=== PATIENT | male | born 1955 | race Caucasian/White ===

== ENCOUNTER 2024-12-10 00:22 | Day surgery (SDC) | payer MEDICARE, SELFPAY ==
[2024-11-28 14:59] VITALS: BMI 36.8
--- OUTSIDE RECORDS SUMMARY | 2024-12-10 00:46 | XMS_ITS | Data Portability ---
Author Organization [place] [facility], Main Office Address [address] [place] [address] Assessment Encounter Date Assessment Date Assessment LastModified by Organization Details LastModified Time 01/02/2023 01/02/2023 Target for LDL blood pressure and A1c have been discussed needs to lose a little bit of weight Continue current therapy follow-up in 6 months [email or web address] Not available 01/02/2023 23:10:36 03/21/2023 03/21/2023 Assessment: Rhinitis Mild OSAHS, AHI = 11 PLMD Vit E deficiency Plan: The following were reviewed and explained to the patient: [facility] titration sleep study 01/03/05 [facility] diagnostic sleep study 12/07/12 AHI = 6 [facility] diagnostic sleep study 09/12/18 AHI = 11, PLMI = 43 [facility] titration sleep study 09/20/18 Alpha tocopherol 04/14/21 7.2 mg/L Alpha tocopherol 01/10/22 11.4 mg/L Alpha tocopherol 03/06/23 12.7 mg/L Non-pharmacologi c therapy options for periodic limb movement disorder include avoidance of aggravating drugs and substances, mental alerting activities, short daily hemodialysis for patients in renal failure, exercise, leg massage, stretching calf muscles, use of a weighted blanket and applied heat. Patient will cut down on caffeine intake. BUN, Vitamin B12, RBC folate, Iron, TIBC, Ferritin, ESR, Magnesium, Hgb and Hct levels are within normal limits. Patient will continue Vitamin E 200 IU but decrease from every other day to 3 x a week to keep the alpha tocopherol > 9.0 mg/L. PAP compliance downloaded and interpreted x 20 minutes. Data reviewed and explained to the patient. Average apnea/hypopnea index (AHI) is 1.3. Patient used PAP > 4 hours 41% of the time. PAP is set at 9 cmH2O. PAP will remain at 9 cmH2O. Oxygen supplementation: none Patient is benefiting from PAP therapy. Encouraged patient to maintain PAP use more than 70% of the time. Statement of PAP use and benefits will be sent to the home care store. The patient will bring the PAP unit, the hose, the cord, the mask and the card/chip to each follow-up visit for further evaluation and adjustments. Educated the patient on problems and solutions associated with positive airway pressure (PAP) use. Difficulty tolerating pressure, mask leaks, intolerance of interface, nasal congestion, claustrophobic response, dry mouth, and unintentional mask removal during sleep were covered. Patient experiences nasal congestion. Patient will use nasal saline spray before starting PAP, use heated PAP humidifier, clean/air dry humidifier reservoir daily, use nasal steroid spray, use ipratropium bromide nasal spray if rhinitis/rhinorr hea is present or obtain an oronasal/oral interface. Patient will setup an appointment with [facility] for CPAP supplies. A major predictor of success with use of PAP is follow-up with both the respiratory supplier and the treating physician. To help assess adherence, a downloadable card/chip is ordered with the PAP equipment. The card/chip will be downloaded by the respiratory supplier and sent to the treating physician. The download results can show the treating physician information about adherence to treatment, residual AHI while on treatment and presence of large mask leakage. This information is especially helpful if the patient has residual sleepiness despite treatment. General information on sleep disorder breathing, evaluation of sleep disordered breathing, treatment with PAP therapy, and living with PAP therapy were covered. We discussed with the patient the impact of weight on: Sleep disordered breathing Hypertension Hyperlipidemia DM BABAR Fatty liver Thoracic compression fractures Osteoarthritis Plantar fasciitis We discussed with the patient the benefit of PAP therapy on: Sleep disordered breathing Rhinosinusitis Hypertension DM BABAR Educated the patient on sleep hygiene measures. Relaxing rituals to rest easy, understanding foods with positive and negative impact on sleep, creating a peaceful sleep environment, timing of exercise, using herbal sleep aids, and practicing sleep-friendly meditation were covered. To determine how much sleep is needed, the patient will assess where (s)he falls on the spectrum, examine what lifestyle factors such as work schedules and stress are affecting the quality and quantity of sleep. In general, adults need 7-9 hours of sleep. Educated the patient regarding foods that promote sleep. These include but are not limited to cherries, bananas, toast, oatmeal, and warm milk. Educated the patient regarding foods and drinks to avoid before bedtime. These include but are not limited to aged cheese, chocolate, spicy foods, tomato-based sauces, soy, ginseng tea and processed meat. Advocated influenza vaccination annually and pneumonia vaccination KRISTAN. Advocated weight loss through diet and exercise. Patient's ideal body weight according to height and gender is up to 155 lbs. Encouraged patient to adjust caloric intake to maintain/achieve ideal body weight, emphasizing on fruits, vegetables, whole grains, and fat-free or low-fat products. These include lean meats, poultry, fish, beans, eggs, and nuts and foods that are low in saturated fats, trans-fats, cholesterol, salt (sodium), and glycemic index. Stressed the importance of regular exercise up to the patient's capacity limits. In this case, we recommend 20 min daily walking, 2 days a week of resistance training. Patient to monitor BP daily and bring records to PCP for further management. Follow-up: 9 months, December 2023 Not available 03/21/2023 10:15:06 05/15/2023 05/15/2023 Continue current therapy would like to consider him for Ozempic for diabetic control and weight reduction but he is reluctant for shot he is going to try caloric restriction walking a little bit more continue current therapy tries to be compliant with sleep apnea device follow-up with me in 4 months [email or web address] Not available 05/15/2023 13:57:27 09/13/2023 09/13/2023 Blood work will be obtained continue current therapy weight reduction 4 month follow-up. [email or web address] Not available 10/03/2023 22:52:05 01/15/2024 01/15/2024 Assessment: Rhinitis Mild OSAHS, AHI = 11 PLMD Vit E deficiency Plan: The following were reviewed and explained to the patient: [facility] titration sleep study 01/03/05 [facility] diagnostic sleep study 12/07/12 AHI = 6 [facility] diagnostic sleep study 09/12/18 AHI = 11, PLMI = 43 [facility] titration sleep study 09/20/18 Alpha tocopherol 04/14/21 7.2 mg/L Alpha tocopherol 01/10/22 11.4 mg/L Alpha tocopherol 03/06/23 12.7 mg/L Alpha tocopherol 01/08/24 9.9 mg/L Non-pharmacologi c therapy options for periodic limb movement disorder include avoidance of aggravating drugs and substances, mental alerting activities, short daily hemodialysis for patients in renal failure, exercise, leg massage, stretching calf muscles, use of a weighted blanket and applied heat. Patient will cut down on caffeine intake. BUN, Vitamin B12, RBC folate, Iron, TIBC, Ferritin, ESR, Magnesium, Hgb and Hct levels are within normal limits. Patient will continue Vitamin E 200 IU every other day to keep the alpha tocopherol > 9.0 mg/L. PAP compliance downloaded and interpreted x 20 minutes. Data reviewed and explained to the patient. Average apnea/hypopnea index (AHI) is 1.1. Patient used PAP > 4 hours 14% of the time. PAP is set at 9 cmH2O. PAP will remain at 9 cmH2O. Oxygen supplementation: none Keep EPR + 1. Keep ramp at 4 cmH2O. Keep ramp duration for 20 minutes. Keep humidifier at level 3. Keep tube temperature at 72 F. Patient is benefiting from PAP therapy. Encouraged patient to maintain PAP use more than 70% of the time. Statement of PAP use and benefits will be sent to the home care store. The patient will bring the PAP unit, the hose, the cord, the mask and the card/chip to each follow-up visit for further evaluation and adjustments. Educated the patient on problems and solutions associated with positive airway pressure (PAP) use. Difficulty tolerating pressure, mask leaks, intolerance of interface, nasal congestion, claustrophobic response, dry mouth, and unintentional mask removal during sleep were covered. Patient experiences nasal congestion. Patient will use nasal saline spray before starting PAP, use heated PAP humidifier, clean/air dry humidifier reservoir daily, use nasal steroid spray, use ipratropium bromide nasal spray if rhinitis/rhinorr hea is present or obtain an oronasal/oral interface. Patient will setup an appointment with [facility] for CPAP supplies. A major predictor of success with use of PAP is follow-up with both the respiratory supplier and the treating physician. The download results can show the treating physician information about adherence to treatment, residual AHI while on treatment and presence of large mask leakage. This information is especially helpful if the patient has residual sleepiness despite treatment. General information on sleep disorder breathing, evaluation of sleep disordered breathing, treatment with PAP therapy, and living with PAP therapy were covered. We discussed with the patient the impact of weight on: Sleep disordered breathing Hypertension Hyperlipidemia DM BABAR Fatty liver Thoracic compression fractures Osteoarthritis Plantar fasciitis We discussed with the patient the benefit of PAP therapy on: Sleep disordered breathing Rhinosinusitis Hypertension DM BABAR Educated the patient on sleep hygiene measures. Relaxing rituals to rest easy, understanding foods with positive and negative impact on sleep, creating a peaceful sleep environment, timing of exercise, using herbal sleep aids, and practicing sleep-friendly meditation were covered. To determine how much sleep is needed, the patient will assess where (s)he falls on the spectrum, examine what lifestyle factors such as work schedules and stress are affecting the quality and quantity of sleep. In general, adults need 7-9 hours of sleep. Educated the patient regarding foods that promote sleep. These include but are not limited to cherries, bananas, toast, oatmeal, and warm milk. Educated the patient regarding foods and drinks to avoid before bedtime. These include but are not limited to aged cheese, chocolate, spicy foods, tomato-based sauces, soy, ginseng tea and processed meat. Advocated influenza vaccination annually and pneumonia vaccination KRISTAN. Advocated weight loss through diet and exercise. Patient's ideal body weight according to height and gender is up to 155 lbs. Encouraged patient to adjust caloric intake to maintain/achieve ideal body weight, emphasizing on fruits, vegetables, whole grains, and fat-free or low-fat products. These include lean meats, poultry, fish, beans, eggs, and nuts and foods that are low in saturated fats, trans-fats, cholesterol, salt (sodium), and glycemic index. Stressed the importance of regular exercise up to the patient's capacity limits. In this case, we recommend 20 min daily walking, 2 days a week of resistance training. Patient to monitor BP daily and bring records to PCP for further management. Follow-up: 1 year, December 2024 Not available 01/15/2024 11:47:44 Plan of Treatment Reminders Order Date Submit Date Provider Last Modified By Organization Details Last Modified Time Details Appointments Establish ed Patient 15 2024 09:15A Tin Blanco MD Not available Not available Not available Lab vitamin E, serum 2023 025 [email or web address] [facility] (Lab), [address] [place], [address], 11/29/2024 13:41:26 glycohemo globin, total, blood 2022 023 [facility] (Lab), [address] [place], [address], 09/13/2023 15:06:26 lipid panel, serum [address] (Lab), [address] [place], [address], 09/13/2023 13:11:19 CMP, serum or plasma [address] (Lab), [address] [place], [address], 09/13/2023 13:11:19 CBC w/ auto diff [address] (Lab), [address] [place], [address], 09/13/2023 13:11:19 PSA, total, serum or plasma 2022 023 [facility] (Lab), [address] [place], [address], 05/15/2023 14:17:16 glycohemo globin, total, blood 2022 023 [facility] (Lab), [address] [place], [address], 05/15/2023 15:32:26 CBC w/ auto diff [address] (Lab), [address] [place], [address], 05/15/2023 13:55:31 lipid panel, serum 2022 023 [facility] (Lab), [address] [place], [address], 05/15/2023 14:03:41 CMP, serum or plasma 2022 023 [facility] (Lab), [address] [place], [address], 05/15/2023 14:03:46 vitamin E, serum [address] (Lab), [address] [place], [address], 11/15/2023 09:55:35 glycohemo globin, total, blood 2022 023 [facility] (Lab), [address] [place], [address], 01/02/2023 19:46:49 CMP, serum or plasma 2022 023 [facility] (Lab), [address] [place], [address], 01/02/2023 19:24:55 lipid panel, serum 2022 023 [facility] (Lab), [address] [place], [address], 01/02/2023 19:25:00 Referral None recorded. Procedures None recorded. Surgeries None recorded. Imaging None recorded. Medication Orders vitamin E mixed 200 unit tablet [address]23 [address] [facility] #[id number], [id number] , [place], [address], 01/15/2024 11:46:02 vitamin E 200 unit capsule 2022 023 [id number], [id number], [place], [address], 11/24/2024 14:11:59 Patient TargetsNo targets recorded. Patient InstructionsNo instructions recorded. Reason for Referral None Reported. Results Created Date Observation Date Name Description Value Unit Range Abnormal Flag Note LastModifiedBy Organization Detail LastModifiedTime 01/03/2001/02/2023 COMPR EHENS NIKKO METAB OLIC PANEL sodium 139 mmol/ L 137-14 5 Not Available [facility] (Lab) [address] [place], [address], 01/02/2023 19:24:55 01/03/2001/02/2023 COMPR EHENS NIKKO METAB OLIC PANEL potassium 4.0 mmol/ L 3.5-5. 1 Not Available [facility] (Lab) [address] [place], [address], 01/02/2023 19:24:55 01/03/20 23 01/02/2023 COMPR EHENS NIKKO METAB OLIC PANEL chloride 102 mmol/ L 98-107 Not Available [facility] (Lab) [address] [place], [address], 01/02/2023 19:24:55 01/03/20 23 01/02/2023 COMPR EHENS NIKKO METAB OLIC PANEL carbon dioxide 24 mmol/ L 22-30 Not Available [facility] (Lab) [address] [place], [address], 01/02/2023 19:24:55 01/03/20 23 01/02/2023 COMPR EHENS NIKKO METAB OLIC PANEL anion gap 17.0 mmol/ L 14-22 Not Available [facility] (Lab) [address] [place], [address], 01/02/2023 19:24:55 01/03/20 23 01/02/2023 COMPR EHENS NIKKO METAB OLIC PANEL glucose 119 mg/dL 70-99 high Not Available [facility] (Lab) [address] [place], [address], 01/02/2023 19:24:55 01/03/20 23 01/02/2023 COMPR EHENS NIKKO METAB OLIC PANEL BUN 14 mg/dL 8-19 Not Available [facility] (Lab) [address] [place], [address], 01/02/2023 19:24:55 01/03/20 23 01/02/2023 COMPR EHENS NIKKO METAB OLIC PANEL creatinine 0.50 mg/dL 0.66-1 .25 low Not Available [facility] (Lab) [address] [place], [address], 01/02/2023 19:24:55 01/03/20 23 01/02/2023 COMPR EHENS NIKKO METAB OLIC PANEL GFR >60 Refer ence Range : [place] ge GFR Healt hy Adult : >60 mL/mi n/1.7 3 m2 Chron ic Kidne y Disea se: 15-60 mL/mi n/1.7 3 m2 Kidne y Failu re: <15/m L/min /1.73 m2 www.n iddk. nih.g ov The MDRD study equat ion has not been valid ated in child [place] <18 years of age; pregn ant women ; the elder ly >85 years of age; or in some racia l or ethni c subgr oups, such as [facility] nics. Outsi de the valid ated linda eters , estim ated GFR is less accur ate, requi ring clini odette judgm ent on a case- by-ca se basis . Clini odette inter preta tion for other races and ages must be made by the clini amy. The MDRD study equat ion has not been valid ated for the evalu ation of serum creat inine relat ed to nutri sondra l statu s or medic ation usage . For perso ns <18 years of age, a pedia tric GFR calcu lator is avail able on the [facility] websi te: https ://tatyana de.o rg/pr ofess ional s/kdo qi/gf r_cal culat or Not Available [facility] (Lab) [address] [place], [address], 01/02/2023 19:24:55 01/03/20 23 01/02/2023 COMPR EHENS NIKKO METAB OLIC PANEL alkaline phosphatase 65 U/L 38-126 Not Available [facility] (Lab) [address] [place], [address], 01/02/2023 19:24:55 01/03/20 23 01/02/2023 COMPR EHENS NIKKO METAB OLIC PANEL alanine aminotransfe rase 61 U/L 0-50 high Not Available [facility] (Lab) [address] [place], [address], 01/02/2023 19:24:55 01/03/20 23 01/02/2023 COMPR EHENS NIKKO METAB OLIC PANEL aspartate aminotransfe rase 39 U/L 15-46 Not Available [facility] (Lab) [address] [place], [address], 01/02/2023 19:24:55 01/03/20 23 01/02/2023 COMPR EHENS NIKKO METAB OLIC PANEL bilirubin, total 0.50 mg/dL 0.20-1 .30 Not Available [facility] (Lab) [address] [place], [address], 01/02/2023 19:24:55 01/03/20 23 01/02/2023 COMPR EHENS NIKKO METAB OLIC PANEL calcium 10.0 mg/dL 8.4-10 .2 Not Available [facility] (Lab) [address] [place], [address], 01/02/2023 19:24:55 01/03/20 23 01/02/2023 COMPR EHENS NIKKO METAB OLIC PANEL total protein 7.7 g/dL 6.3-8. 2 Not Available [facility] (Lab) [address] [place], [address], 01/02/2023 19:24:55 01/03/2001/02/2023 COMPR EHENS NIKKO METAB OLIC PANEL albumin 4.6 g/dL 3.0-4. 4 high Not Available [facility] (Lab) [address] [place], [address], 01/02/2023 19:24:55 01/03/20 23 01/02/2023 COMPR EHENS NIKKO METAB OLIC PANEL globulin 3.1 g/dL 2.6-4. 2 Not Available [facility] (Lab) [address] [place], [address], 01/02/2023 19:24:55 01/03/2001/02/2023 COMPR EHENS NIKKO METAB OLIC PANEL A/G ratio 1.5 ratio 1.0-2. 0 Not Available [facility] (Lab) [address] [place], [address], 01/02/2023 19:24:55 01/03/2001/02/2023 LIPID PANEL cholesterol 173 mg/dL 140-19 9 NIH SONJA NSUS RECOM MENDA TION FOR PORFIRIO STERO L: ADULT CHILD LOW RISK: <200 <170 BORDE RLINE : <200- 239 ----- HIGH RISK: >240 >200 Not Available [facility] (Lab) [address] [place], [address], 01/02/2023 19:25:00 01/03/2001/02/2023 LIPID PANEL triglyceride s 115 mg/dL 0-150 NIH SONJA NSUS REPOR T RECOM MENDA TION FOR TRIGL YCERI [place]: ADULT CHILD LOW RISK: <150 ----- BODER LINE: 150-1 99 ----- HIGH RISK: >200 ----- Not Available [facility] (Lab) [address] [place], [address], 01/02/2023 19:25:00 01/03/20 23 01/02/2023 LIPID PANEL HDL cholesterol 47 mg/dL 40- Not Available [facility] (Lab) [address] [place], [address], 01/02/2023 19:25:00 01/03/20 23 01/02/2023 LIPID PANEL LDL cholesterol, calculated 103 mg/dL 0-130 NIH SONJA NSUS REPOR T RECOM MENDA TIONS FOR LDL: ADULT CHILD LOW RISK <130 <110 (OPTI MAL LDL) <100 ----- BORDE RLINE : 130-1 59 ----- HIGH RISK: >160 >130 A TRIGL YCERI DE RESUL T >400 INVAL IDATE S THE CALCU LATIO N FOR LDL FRACT IONAT ION - THE LDL RESUL T WILL NOT BE REPOR JAMES. Not Available [facility] (Lab) [address] [place], [address], 01/02/2023 19:25:00 01/03/20 23 01/02/2023 HEMOG LOBIN A1C HA1C 7.6 % 4.0-6. 0 high Diabe sophia Scree meliton Crite elizabeth: <5.7% Consi stent with absen ce of diabe sophia 5.7-6 .4% Consi stent with incre ased risk for diabe sophia (pred iabet es) >OR=6 .5% Consi stent with diabe sophia REFER ENCE: Diabe sophia Care 2016, 39(Cuellar ppl.1 ):s13 -s22 Not Available [facility] (Lab) [address] [place], [address], 01/02/2023 19:46:49 05/15/2005/15/2023 CBC/C OMPLE TE BLD COUNT W/DIF F white blood cells 4.9 x10'3 /uL 4.2-10 .8 Not Available [facility] (Lab) [address] [place], [address], 05/15/2023 13:21:05 05/15/20 23 05/15/2023 CBC/C OMPLE TE BLD COUNT W/DIF F red blood cells 5.17 x10'6 /uL 4.10-5 .80 Not Available [facility] (Lab) [address] [place], [address], 05/15/2023 13:21:05 05/15/20 23 05/15/2023 CBC/C OMPLE TE BLD COUNT W/DIF F hemoglobin 15.8 g/dL 13.2-1 7.0 Not Available [facility] (Lab) [address] [place], [address], 05/15/2023 13:21:05 05/15/20 23 05/15/2023 CBC/C OMPLE TE BLD COUNT W/DIF F hematocrit 46.7 % 39.3-5 0.0 Not Available [facility] (Lab) [address] [place], [address], 05/15/2023 13:21:05 05/15/20 23 05/15/2023 CBC/C OMPLE TE BLD COUNT W/DIF F mean red cell volume 90.3 fL 80.0-9 7.0 Not Available [facility] (Lab) [address] [place], [address], 05/15/2023 13:21:05 05/15/20 23 05/15/2023 CBC/C OMPLE TE BLD COUNT W/DIF F mean red cell hemoglobin 30.6 pg 27.0-3 3.0 Not Available [facility] (Lab) [address] [place], [address], 05/15/2023 13:21:05 05/15/20 23 05/15/2023 CBC/C OMPLE TE BLD COUNT W/DIF F mean RBC HGB concentratio n 33.8 g/dL 31.0-3 6.0 Not Available [facility] (Lab) [address] [place], [address], 05/15/2023 13:21:05 05/15/20 23 05/15/2023 CBC/C OMPLE TE BLD COUNT W/DIF F red cell distribution width 12.9 % 11.8-1 5.5 Not Available [facility] (Lab) [address] [place], [address], 05/15/2023 13:21:05 05/15/20 23 05/15/2023 CBC/C OMPLE TE BLD COUNT W/DIF F platelets 201 x10'3 /uL 150-40 0 Not Available [facility] (Lab) [address] [place], [address], 05/15/2023 13:21:05 05/15/20 23 05/15/2023 CBC/C OMPLE TE BLD COUNT W/DIF F mean platelet volume 12.1 fL 9.0-12 .4 Not Available [facility] (Lab) [address] [place], [address], 05/15/2023 13:21:05 05/15/20 23 05/15/2023 CBC/C OMPLE TE BLD COUNT W/DIF F neutrophils 45.9 % 39.0-7 2.0 Not Available [facility] (Lab) [address] [place], [address], 05/15/2023 13:21:05 05/15/20 23 05/15/2023 CBC/C OMPLE TE BLD COUNT W/DIF F lymphocytes 36.9 % 16.0-4 7.0 Not Available [facility] (Lab) [address] [place], [address], 05/15/2023 13:21:05 05/15/20 23 05/15/2023 CBC/C OMPLE TE BLD COUNT W/DIF F monocytes 11.1 % 5.0-12 .0 Not Available [facility] (Lab) [address] [place], [address], 05/15/2023 13:21:05 05/15/2005/15/2023 CBC/C OMPLE TE BLD COUNT W/DIF F eosinophils 5.3 % 1.0-7. 0 Not Available [facility] (Lab) [address] [place], [address], 05/15/2023 13:21:05 05/15/20 23 05/15/2023 CBC/C OMPLE TE BLD COUNT W/DIF F basophils 0.6 % 0.0-2. 0 Not Available [facility] (Lab) [address] [place], [address], 05/15/2023 13:21:05 05/15/20 23 05/15/2023 CBC/C OMPLE TE BLD COUNT W/DIF F immature granulocytes 0.2 % 0.00-0 .50 Not Available [facility] (Lab) [address] [place], [address], 05/15/2023 13:21:05 05/15/2005/15/2023 CBC/C OMPLE TE BLD COUNT W/DIF F neutrophils, absolute count 2.24 x10'3 /uL 1.5-8. 0 Not Available [facility] (Lab) [address] [place], [address], 05/15/2023 13:21:05 05/15/2005/15/2023 CBC/C OMPLE TE BLD COUNT W/DIF F lymphocytes, absolute count 1.80 x10'3 /uL 1.07-3 .43 Not Available [facility] (Lab) [address] [place], [address], 05/15/2023 13:21:05 05/15/20 23 05/15/2023 CBC/C OMPLE TE BLD COUNT W/DIF F monocytes, absolute count 0.54 x10'3 /uL 0.29-0 .99 Not Available [facility] (Lab) [address] [place], [address], 05/15/2023 13:21:05 05/15/20 23 05/15/2023 CBC/C OMPLE TE BLD COUNT W/DIF F eosinophils, absolute count 0.26 x10'3 /uL 0.02-0 .53 Not Available [facility] (Lab) [address] [place], [address], 05/15/2023 13:21:05 05/15/20 23 05/15/2023 CBC/C OMPLE TE BLD COUNT W/DIF F basophils, absolute count 0.03 x10'3 /uL 0.01-0 .08 Not Available [facility] (Lab) [address] [place], [address], 05/15/2023 13:21:05 05/15/20 23 05/15/2023 CBC/C OMPLE TE BLD COUNT W/DIF F immature granulocytes ,absolute 0.01 x10'3 /uL 0.00-0 .05 Not Available [facility] (Lab) [address] [place], [address], 05/15/2023 13:21:05 05/15/20 23 05/15/2023 CBC/C OMPLE TE BLD COUNT W/DIF F nucleated red blood cells 0.0 % -0 Not Available [facility] (Lab) [address] [place], [address], 05/15/2023 13:21:05 05/15/20 23 05/15/2023 CBC/C OMPLE TE BLD COUNT W/DIF F NRBC# 0.00 x10'3 /uL Not Available [facility] (Lab) [address], [address], 05/15/2023 13:21:05 05/15/20 23 05/15/2023 LIPID PANEL cholesterol 166 mg/dL 140-19 9 NIH SONJA NSUS RECOM MENDA TION FOR PORFIRIO STERO L: ADULT CHILD LOW RISK: <200 <170 BORDE RLINE : <200- 239 ----- HIGH RISK: >240 >200 Not Available [facility] (Lab) [address] [place], [address], 05/15/2023 14:03:40 05/15/20 23 05/15/2023 LIPID PANEL triglyceride s 120 mg/dL 0-150 NIH SONJA NSUS REPOR T RECOM MENDA TION FOR TRIGL YCERI [place]: ADULT CHILD LOW RISK: <150 ----- BODER LINE: 150-1 99 ----- HIGH RISK: >200 ----- Not Available [facility] (Lab) [address] [place], [address], 05/15/2023 14:03:40 05/15/20 23 05/15/2023 LIPID PANEL HDL cholesterol 42 mg/dL 40- Not Available [facility] (Lab) [address] [place], [address], 05/15/2023 14:03:40 05/15/20 23 05/15/2023 LIPID PANEL LDL cholesterol, calculated 100 mg/dL 0-130 NIH SONJA NSUS REPOR T RECOM MENDA TIONS FOR LDL: ADULT CHILD LOW RISK <130 <110 (OPTI MAL LDL) <100 ----- BORDE RLINE : 130-1 59 ----- HIGH RISK: >160 >130 A TRIGL YCERI DE RESUL T >400 INVAL IDATE S THE CALCU LATIO N FOR LDL FRACT IONAT ION - THE LDL RESUL T WILL NOT BE REPOR JAMES. Not Available [facility] (Lab) [address] [place], [address], 05/15/2023 14:03:40 05/15/20 23 05/15/2023 COMPR EHENS NIKKO METAB OLIC PANEL sodium 138 mmol/ L 137-14 5 Not Available [facility] (Lab) [address] [place], [address], 05/15/2023 14:03:46 05/15/20 23 05/15/2023 COMPR EHENS NIKKO METAB OLIC PANEL potassium 4.3 mmol/ L 3.5-5. 1 Not Available [facility] (Lab) [address] [place], [address], 05/15/2023 14:03:46 05/15/20 23 05/15/2023 COMPR EHENS NIKKO METAB OLIC PANEL chloride 102 mmol/ L 98-107 Not Available [facility] (Lab) [address] [facility] [place], [address], 05/15/2023 14:03:46 05/15/20 23 05/15/2023 COMPR EHENS NIKKO METAB OLIC PANEL carbon dioxide 26 mmol/ L 22-30 Not Available [facility] (Lab) [address] [place], [address], 05/15/2023 14:03:46 05/15/20 23 05/15/2023 COMPR EHENS NIKKO METAB OLIC PANEL anion gap 14.3 mmol/ L 14-22 Not Available [facility] (Lab) [address] [place], [address], 05/15/2023 14:03:46 05/15/20 23 05/15/2023 COMPR EHENS NIKKO METAB OLIC PANEL glucose 138 mg/dL 70-99 high Not Available [facility] (Lab) [address] [place], [address], 05/15/2023 14:03:46 05/15/20 23 05/15/2023 COMPR EHENS NIKKO METAB OLIC PANEL BUN 13 mg/dL 8-19 Not Available [facility] (Lab) [address] [place], [address], 05/15/2023 14:03:46 05/15/20 23 05/15/2023 COMPR EHENS NIKKO METAB OLIC PANEL creatinine 0.53 mg/dL 0.66-1 .25 low Not Available [facility] (Lab) [address] [place], [address], 05/15/2023 14:03:46 05/15/20 23 05/15/2023 COMPR EHENS NIKKO METAB OLIC PANEL GFR >60 Refer ence Range : [place] ge GFR Healt hy Adult : >60 mL/mi n/1.7 3 m2 Chron ic Kidne y Disea se: 15-60 mL/mi n/1.7 3 m2 Kidne y Failu re: <15/m L/min /1.73 m2 www.n iddk. nih.g ov The MDRD study equat ion has not been valid ated in child [place] <18 years of age; pregn ant women ; the elder ly >85 years of age; or in some racia l or ethni c subgr oups, such as Hispa nics. Outsi de the valid ated linda eters , estim ated GFR is less accur ate, requi ring clini odette judgm ent on a case- by-ca se basis . Clini odette inter preta tion for other races and ages must be made by the clini amy. The MDRD study equat ion has not been valid ated for the evalu ation of serum creat inine relat ed to nutri sondra l statu s or medic ation usage . For perso ns <18 years of age, a pedia tric GFR calcu lator is avail able on the [facility] websi te: https ://tatyana jacobs.lay de.o rg/pr janyess keial s/kdo qi/gf r_cal culat or Not Available [facility] (Lab) [address] [place], [address], 05/15/2023 14:03:46 05/15/2005/15/2023 COMPR EHENS NIKKO METAB OLIC PANEL alkaline phosphatase 60 U/L 38-126 Not Available [facility] (Lab) [address] [place], [address], 05/15/2023 14:03:46 05/15/20 23 05/15/2023 COMPR EHENS NIKKO METAB OLIC PANEL alanine aminotransfe rase 39 U/L 0-50 Not Available [facility] (Lab) [address] [place], [address], 05/15/2023 14:03:46 05/15/20 23 05/15/2023 COMPR EHENS NIKKO METAB OLIC PANEL aspartate aminotransfe rase 33 U/L 15-46 Not Available [facility] (Lab) [address] [place], [address], 05/15/2023 14:03:46 05/15/20 23 05/15/2023 COMPR EHENS NIKKO METAB OLIC PANEL bilirubin, total 0.60 mg/dL 0.20-1 .30 Not Available [facility] (Lab) [address] [place], [address], 05/15/2023 14:03:46 05/15/20 23 05/15/2023 COMPR EHENS NIKKO METAB OLIC PANEL calcium 9.5 mg/dL 8.4-10 .2 Not Available [facility] (Lab) [address] [place], [address], 05/15/2023 14:03:46 05/15/20 23 05/15/2023 COMPR EHENS NIKKO METAB OLIC PANEL total protein 7.5 g/dL 6.3-8. 2 Not Available [facility] (Lab) [address] [place], [address], 05/15/2023 14:03:46 05/15/20 23 05/15/2023 COMPR EHENS NIKKO METAB OLIC PANEL albumin 4.5 g/dL 3.0-4. 4 high Not Available [facility] (Lab) [address] [place], [address], 05/15/2023 14:03:46 05/15/20 23 05/15/2023 COMPR EHENS NIKKO METAB OLIC PANEL globulin 3.0 g/dL 2.6-4. 2 Not Available [facility] (Lab) [address] [place], [address], 05/15/2023 14:03:46 05/15/20 23 05/15/2023 COMPR EHENS NIKKO METAB OLIC PANEL A/G ratio 1.5 ratio 1.0-2. 0 Not Available [facility] (Lab) [address] [place], [address], 05/15/2023 14:03:46 05/15/20 23 05/15/2023 PSA SCREE N PSA medicare screen 0.67 NG/mL 0.00-4 .00 Not Available [facility] (Lab) [address] [place], [address], 05/15/2023 14:17:16 05/15/2005/15/2023 HEMOG LOBIN A1C HA1C 7.9 % 4.0-6. 0 high Diabe sophia Scree meliton Crite elizabeth: <5.7% Consi stent with absen ce of diabe sophia 5.7-6 .4% Consi stent with incre ased risk for diabe sophia (pred iabet es) >OR=6 .5% Consi stent with diabe sophia REFER ENCE: Diabe sophia Care 2016, 39(Cuellar ppl.1 ):s13 -s22 Not Available [facility] (Lab) [address] [place], [address], 05/15/2023 15:32:26 09/13/20 23 09/13/2023 CBC/C OMPLE TE BLD COUNT W/DIF F white blood cells 5.0 x10'3 /uL 4.2-10 .8 Not Available [facility] (Lab) [address] [place], [address], 09/13/2023 12:38:25 09/13/20 23 09/13/2023 CBC/C OMPLE TE BLD COUNT W/DIF F red blood cells 5.01 x10'6 /uL 4.10-5 .80 Not Available [facility] (Lab) [address] [place], [address], 09/13/2023 12:38:25 09/13/20 23 09/13/2023 CBC/C OMPLE TE BLD COUNT W/DIF F hemoglobin 15.5 g/dL 13.2-1 7.0 Not Available [facility] (Lab) [address] [place], [address], 09/13/2023 12:38:25 09/13/2009/13/2023 CBC/C OMPLE TE BLD COUNT W/DIF F hematocrit 46.4 % 39.3-5 0.0 Not Available [facility] (Lab) [address] [place], [address], 09/13/2023 12:38:25 09/13/2009/13/2023 CBC/C OMPLE TE BLD COUNT W/DIF F mean red cell volume 92.6 fL 80.0-9 7.0 Not Available [facility] (Lab) [address] [place], [address], 09/13/2023 12:38:25 09/13/2009/13/2023 CBC/C OMPLE TE BLD COUNT W/DIF F mean red cell hemoglobin 30.9 pg 27.0-3 3.0 Not Available [facility] (Lab) [address] [place], [address], 09/13/2023 12:38:25 09/13/2009/13/2023 CBC/C OMPLE TE BLD COUNT W/DIF F mean RBC HGB concentratio n 33.4 g/dL 31.0-3 6.0 Not Available [facility] (Lab) [address] [place], [address], 09/13/2023 12:38:25 09/13/20 23 09/13/2023 CBC/C OMPLE TE BLD COUNT W/DIF F red cell distribution width 13.2 % 11.8-1 5.5 Not Available [facility] (Lab) [address] [place], [address], 09/13/2023 12:38:25 09/13/20 23 09/13/2023 CBC/C OMPLE TE BLD COUNT W/DIF F platelets 217 x10'3 /uL 150-40 0 Not Available [facility] (Lab) [address] [place], [address], 09/13/2023 12:38:25 09/13/2009/13/2023 CBC/C OMPLE TE BLD COUNT W/DIF F mean platelet volume 11.4 fL 9.0-12 .4 Not Available [facility] (Lab) [address] [place], [address], 09/13/2023 12:38:25 09/13/20 23 09/13/2023 CBC/C OMPLE TE BLD COUNT W/DIF F neutrophils 47.3 % 39.0-7 2.0 Not Available [facility] (Lab) [address] [place], [address], 09/13/2023 12:38:25 09/13/20 23 09/13/2023 CBC/C OMPLE TE BLD COUNT W/DIF F lymphocytes 36.9 % 16.0-4 7.0 Not Available [facility] (Lab) [address] [place], [address], 09/13/2023 12:38:25 09/13/2009/13/2023 CBC/C OMPLE TE BLD COUNT W/DIF F monocytes 10.8 % 5.0-12 .0 Not Available [facility] (Lab) [address] [place], [address], 09/13/2023 12:38:25 09/13/20 23 09/13/2023 CBC/C OMPLE TE BLD COUNT W/DIF F eosinophils 4.0 % 1.0-7. 0 Not Available [facility] (Lab) [address] [place], [address], 09/13/2023 12:38:25 09/13/20 23 09/13/2023 CBC/C OMPLE TE BLD COUNT W/DIF F basophils 0.6 % 0.0-2. 0 Not Available [facility] (Lab) [address] [place], [address], 09/13/2023 12:38:25 09/13/2009/13/2023 CBC/C OMPLE TE BLD COUNT W/DIF F immature granulocytes 0.4 % 0.00-0 .50 Not Available [facility] (Lab) [address] [place], [address], 09/13/2023 12:38:25 09/13/20 23 09/13/2023 CBC/C OMPLE TE BLD COUNT W/DIF F neutrophils, absolute count 2.37 x10'3 /uL 1.5-8. 0 Not Available [facility] (Lab) [address] [place], [address], 09/13/2023 12:38:25 09/13/20 23 09/13/2023 CBC/C OMPLE TE BLD COUNT W/DIF F lymphocytes, absolute count 1.85 x10'3 /uL 1.07-3 .43 Not Available [facility] (Lab) [address] [place], [address], 09/13/2023 12:38:25 09/13/20 23 09/13/2023 CBC/C OMPLE TE BLD COUNT W/DIF F monocytes, absolute count 0.54 x10'3 /uL 0.29-0 .99 Not Available [facility] (Lab) [address] [place], [address], 09/13/2023 12:38:25 09/13/20 23 09/13/2023 CBC/C OMPLE TE BLD COUNT W/DIF F eosinophils, absolute count 0.20 x10'3 /uL 0.02-0 .53 Not Available [facility] (Lab) [address] [place], [address], 09/13/2023 12:38:25 09/13/20 23 09/13/2023 CBC/C OMPLE TE BLD COUNT W/DIF F basophils, absolute count 0.03 x10'3 /uL 0.01-0 .08 Not Available [facility] (Lab) [address] [place], [address], 09/13/2023 12:38:25 09/13/20 23 09/13/2023 CBC/C OMPLE TE BLD COUNT W/DIF F immature granulocytes ,absolute 0.02 x10'3 /uL 0.00-0 .05 Not Available [facility] (Lab) [address] [place], [address], 09/13/2023 12:38:25 09/13/20 23 09/13/2023 CBC/C OMPLE TE BLD COUNT W/DIF F nucleated red blood cells 0.0 % -0 Not Available [facility] (Lab) [address] [place], [address], 09/13/2023 12:38:25 09/13/20 23 09/13/2023 CBC/C OMPLE TE BLD COUNT W/DIF F NRBC# 0.00 x10'3 /uL Not Available [facility] (Lab) [address] [place], [address], 09/13/2023 12:38:25 09/13/20 23 09/13/2023 LIPID PANEL cholesterol 167 mg/dL 140-19 9 NIH SONJA NSUS RECOM MENDA TION FOR PORFIRIO STERO L: ADULT CHILD LOW RISK: <200 <170 BORDE RLINE : <200- 239 ----- HIGH RISK: >240 >200 Not Available [facility] (Lab) [address] [place], [address], 09/13/2023 13:01:31 09/13/20 23 09/13/2023 LIPID PANEL triglyceride s 82 mg/dL 0-150 NIH SONJA NSUS REPOR T RECOM MENDA TION FOR TRIGL YCERI [place]: ADULT CHILD LOW RISK: <150 ----- BODER LINE: 150-1 99 ----- HIGH RISK: >200 ----- Not Available [facility] (Lab) [address] [place], [address], 09/13/2023 13:01:31 09/13/20 23 09/13/2023 LIPID PANEL HDL cholesterol 42 mg/dL 40- Not Available [facility] (Lab) [address] [place], [address], 09/13/2023 13:01:31 09/13/20 23 09/13/2023 LIPID PANEL LDL cholesterol, calculated 109 mg/dL 0-130 NIH SONJA NSUS REPOR T RECOM MENDA TIONS FOR LDL: ADULT CHILD LOW RISK <130 <110 (OPTI MAL LDL) <100 ----- BORDE RLINE : 130-1 59 ----- HIGH RISK: >160 >130 A TRIGL YCERI DE RESUL T >400 INVAL IDATE S THE CALCU LATIO N FOR LDL FRACT IONAT ION - THE LDL RESUL T WILL NOT BE REPOR JAMES. Not Available [facility] (Lab) [address] [place], [address], 09/13/2023 13:01:31 09/13/20 23 09/13/2023 COMPR EHENS NIKKO METAB OLIC PANEL sodium 139 mmol/ L 137-14 5 Not Available [facility] (Lab) [address] [place], [address], 09/13/2023 13:01:35 09/13/20 09/13/2023 COMPR EHENS NIKKO METAB OLIC PANEL potassium 4.3 mmol/ L 3.5-5. 1 Not Available [facility] (Lab) [address] [facility] [place], [address], 09/13/2023 13:01:35 09/13/20 23 09/13/2023 COMPR EHENS NIKKO METAB OLIC PANEL chloride 104 mmol/ L 98-107 Not Available [facility] (Lab) [address] [place], [address], 09/13/2023 13:01:35 09/13/20 23 09/13/2023 COMPR EHENS NIKKO METAB OLIC PANEL carbon dioxide 24 mmol/ L 22-30 Not Available [facility] (Lab) [address] [place], [address], 09/13/2023 13:01:35 09/13/20 23 09/13/2023 COMPR EHENS NIKKO METAB OLIC PANEL anion gap 15.3 mmol/ L 14-22 Not Available [facility] (Lab) [address] [place], [address], 09/13/2023 13:01:35 09/13/20 23 09/13/2023 COMPR EHENS NIKKO METAB OLIC PANEL glucose 158 mg/dL 70-99 high Not Available [facility] (Lab) [address] [place], [address], 09/13/2023 13:01:35 09/13/20 23 09/13/2023 COMPR EHENS NIKKO METAB OLIC PANEL BUN 12 mg/dL 8-19 Not Available [facility] (Lab) [address] [place], [address], 09/13/2023 13:01:35 09/13/20 23 09/13/2023 COMPR EHENS NIKKO METAB OLIC PANEL creatinine 0.50 mg/dL 0.66-1 .25 low Not Available [facility] (Lab) [address] [place], [address], 09/13/2023 13:01:35 09/13/20 23 09/13/2023 COMPR EHENS NIKKO METAB OLIC PANEL GFR >60 Refer ence Range : [place] ge GFR Healt hy Adult : >60 mL/mi n/1.7 3 m2 Chron ic Kidne y Disea se: 15-60 mL/mi n/1.7 3 m2 Kidne y Failu re: <15/m L/min /1.73 m2 www.n iddk. nih.g ov The MDRD study equat ion has not been valid ated in child [place] <18 years of age; pregn ant women ; the elder ly >85 years of age; or in some racia l or ethni c subgr oups, such as Hisrashida nics. Outsi de the valid ated linda eters , estim ated GFR is less accur ate, requi ring clini odette judgm ent on a case- by-ca se basis . Clini odette inter preta tion for other races and ages must be made by the clini amy. The MDRD study equat ion has not been valid ated for the evalu ation of serum creat inine relat ed to nutri sondra l statu s or medic ation usage . For perso ns <18 years of age, a pedia tric GFR calcu lator is avail able on the [facility] websi te: https ://tatyana w.lay de.o rg/pr ofess ional s/kdo qi/gf r_cal culat or Not Available [facility] (Lab) [address] [place], [address], 09/13/2023 13:01:35 09/13/20 23 09/13/2023 COMPR EHENS NIKKO METAB OLIC PANEL alkaline phosphatase 57 U/L 38-126 Not Available [facility] (Lab) [address] [place], [address], 09/13/2023 13:01:35 09/13/20 23 09/13/2023 COMPR EHENS NIKKO METAB OLIC PANEL alanine aminotransfe rase 43 U/L 0-50 Not Available [facility] (Lab) [address] [place], [address], 09/13/2023 13:01:35 09/13/20 23 09/13/2023 COMPR EHENS NIKKO METAB OLIC PANEL aspartate aminotransfe rase 33 U/L 15-46 Not Available [facility] (Lab) [address] [place], [address], 09/13/2023 13:01:35 09/13/20 23 09/13/2023 COMPR EHENS NIKKO METAB OLIC PANEL bilirubin, total 0.50 mg/dL 0.20-1 .30 Not Available [facility] (Lab) [address] [place], [address], 09/13/2023 13:01:35 09/13/20 23 09/13/2023 COMPR EHENS NIKKO METAB OLIC PANEL calcium 9.8 mg/dL 8.4-10 .2 Not Available [facility] (Lab) [address] [place], [address], 09/13/2023 13:01:35 09/13/20 23 09/13/2023 COMPR EHENS NIKKO METAB OLIC PANEL total protein 7.5 g/dL 6.3-8. 2 Not Available [facility] (Lab) [address] [place], [address], 09/13/2023 13:01:35 09/13/20 23 09/13/2023 COMPR EHENS NIKKO METAB OLIC PANEL albumin 4.3 g/dL 3.0-4. 4 Not Available [facility] (Lab) [address] [place], [address], 09/13/2023 13:01:35 09/13/20 23 09/13/2023 COMPR EHENS NIKKO METAB OLIC PANEL globulin 3.2 g/dL 2.6-4. 2 Not Available [facility] (Lab) [address] [place], [address], 09/13/2023 13:01:35 09/13/20 23 09/13/2023 COMPR EHENS NIKKO METAB OLIC PANEL A/G ratio 1.3 ratio 1.0-2. 0 Not Available [facility] (Lab) [address] [place], [address], 09/13/2023 13:01:35 09/13/20 23 09/13/2023 HEMOG LOBIN A1C HA1C 7.7 % 4.0-6. 0 high Diabe sophia Scree meliton Crite elizabeth: <5.7% Consi stent with absen ce of diabe sophia 5.7-6 .4% Consi stent with incre ased risk for diabe sophia (pred iabet es) >OR=6 .5% Consi stent with diabe sophia REFER ENCE: Diabe sophia Care 2016, 39(Cuellar ppl.1 ):s13 -s22 Not Available [facility] (Lab) [address] [place], [address], 09/13/2023 15:06:26 Result Notes None recorded. Problems Name Problem SNOMED Code Status Onset Date Resolution Date Notes Provider Name and Address Organization Details Recorded Time History of total knee arthropla sty 21726414765 05 Active 2018 Not Available [facility] 3 08:12:26 Trigger finger of left hand 71916471705 339058 Active 2020 Not Available [facility] 3 08:12:26 Trigger finger of right hand 79541233725 874720 Active 2020 Not Available [facility] 3 08:12:26 Plantar fasciitis 762842592 Active Not Available [facility] 3 08:12:26 Gastroeso phageal reflux disease 268879040 Active Not Available [facility] 3 08:12:26 Overweigh t 783303741 Completed 201804/06/2021 Not Available [facility] 3 06:07:13 Eruption 078592812 Completed Not Available [facility] 3 06:07:13 Heel pain 7973823 Completed Not Available [facility] 3 06:07:13 Lump on face 852910032 Completed Not Available [facility] 3 06:07:13 Current tear of medial cartilage AND/OR meniscus of knee Completed Not Available [facility] 3 06:07:13 Current tear of lateral cartilage AND/OR meniscus of knee Completed Not Available [facility] 3 06:07:13 Knee pain Completed Not Available [facility] 3 06:07:13 Type 2 diabetes mellitus without complicat ion 067017782 Active 2021 Not Available [facility] 3 08:12:26 Pain in left knee Completed 201804/06/2021 Not Available [facility] 3 06:07:14 Restricti ve lung disease 81949471 Completed Not Available [facility] 3 06:07:14 Dyslipide reba 958032090 Active 2018 Not Available [facility] 3 08:12:26 Arthritis 6453357 Completed Not Available [facility] 3 06:07:14 Osteoarth ritis 118236899 Active Not Available [facility] 3 08:12:26 Body mass index 40+ - severely obese 683994998 Active 2018 Not Available [facility] 3 08:12:26 Obesity 862939866 Active 2020 Not Available [facility] 3 08:12:26 Paresthes ia of lower extremity 697286167 Active 2021 Not Available [facility] 3 08:12:26 Foot pain 86552731 Completed Not Available [facility] 3 06:07:15 Cough 44194554 Completed David Blanco MD [address] [facility], [place] [address], [place], [address] , [facility] [employer] [facility] 4 11:38:29 Viral hepatitis C 34787485 Active Not Available [facility] 3 08:12:27 Essential hypertens ion 05017007 Active 2016 Not Available [facility] 3 08:12:27 Derangeme nt of knee 76658342 Completed Not Available [facility] 3 06:07:16 Diabetes mellitus 44465817 Completed Not Available [facility] 3 06:07:16 Sleep apnea 68961318 Completed Not Available [facility] 3 06:07:17 Obstructi ve sleep apnea syndrome 00582887 Active 2018 Not Available [facility] 3 08:12:27 Skin lesion 75909222 Completed Not Available [facility] 3 06:07:17 Vitamin E deficienc y 22598863 Active 2022 Not Available [facility] 3 08:12:27 Anxiety 83230225 Active 2022 Not Available [facility] 3 08:12:26 Motion sickness 39508424 Active 2022 Not Available [facility] 3 08:12:26 Notes:Medical History: L>R h earing loss/tinnitus Rhinosinusitis with postnasal drip Bruxism Bilateral gynecomastia Obesity with mild OSAHS, AHI = 11, 09/12/18, on CPAP c/o Provider Plus Hypertension Hyperlipidemia T2DM Ascending thoracic aortic ectasia BABAR Hepatitis C Fatty liver Colonic polyps Diverticulosis Vit E deficiency PLMD T4, T5, T6 compression fractures Osteoarthritis Plantar fasciitis Bilateral trigger finger Procedure History: T&A 1963 Colonoscopy 2009 Right total knee arthroplasty 2018 PAP Mask Use History: Respironics small Dream Wear nasal mask Respironics medium Dream Wear nasal pillows Problem Notes None recorded. Procedures Surgical History Date Name Laterality Status Provider Name and Address Organization Details Recorded Time 07/04/20 18 Total knee arthroplasty completed Not Available [facility] 11/30/2022 05:57:46 10/31/19 18 Colonoscopy completed Not Available [facility] 12/01/19 05:57:46 11/29/19 17 Knee arthroscopy/surg toine completed Not Available [facility] 11/30/2022 05:57:46 Imaging Results None recorded. Procedure Notes None recorded. Medical Equipment None Reported. Allergies No known drug allergies Medications Name Sig Start Date Stop Date Status Note LastModified by Organization Details LastModified Time metformin 500 mg tablet Take 1 tablet twice a day by oral route. 03/17 completed Not Available Not Available Not Available prednisone 10 mg tablet [id number], [id number], [id number] active Not Available Not Available No t Available vitamin E 200 unit capsule Take 1 capsule 3 times a week by oral route. 11/24 completed Not Available Not Available Not Available Ceftin 500 mg tablet Take 1 tablet every 12 hours by oral route for 10 days. 08/22 completed Not Available Not Available Not Available clindamycin HCl 300 mg capsule TAKE 1 CAPSULE 3 TIMES A DAY BY ORAL ROUTE DIRECTED FOR 7 DAYS, FOR DENTAL ABCESS. 01/14 completed Not Available Not Available Not Available triamcinolo ne acetonide 0.5 % topical cream APPLY A THIN LAYER TO THE AFFECTED AREA(S) BY TOPICAL ROUTE 2 TIMES PER DAY active Not Available Not Available No t Available atorvastati n 10 mg tablet TAKE 1 TABLET BY MOUTH EVERY DAY active Not Available Not Available No t Available azithromyci n 250 mg tablet TAKE 2 TABLETS BY MOUTH TODAY, THEN TAKE 1 TABLET DAILY FOR 4 DAYS 03/21 completed Not Available Not Available Not Available aspirin 325 mg tablet Take 1 tablet twice a day by oral route. 03/05 completed Not Available Not Available Not Available hydrocodone 5 mg-acetamin ophen 325 mg tablet 03/31 completed Not Available Not Available Not Available minocycline 100 mg capsule Take 1 capsule every 12 hours by oral route. active Not Available Not Available No t Available vitamin E 100 unit capsule Take 1 capsule by oral route. 08/29 completed Not Available Not Available Not Available Medrol (Galileo) 4 mg tablets in a dose pack take as directed, decreased doses beginning with 6 tablets day 1 08/26 completed Not Available Not Available Not Available clindamycin HCl 150 mg capsule 02/07 completed Not Available Not Available Not Available penicillin V potassium 500 mg tablet 02/07 completed Not Available Not Available Not Available triamcinolo ne acetonide 0.1 % topical cream APPLY A THIN LAYER TO THE AFFECTED AREA(S) BY TOPICAL ROUTE 1 TIME PER DAY NEEDED FOR RASH active Not Available Not Available No t Available OneTouch Ultra Test strips USE TO TEST ONCE DAILY 11/24 completed Not Available Not Available Not Available Kenalog 10 mg/mL suspension for injection In office injection administe red by the provider 03/17 completed NDC: 0003- 0494- 20 Not Available Not Available Not Available hydrocodone 7.5 mg-acetamin ophen 325 mg tablet 11/06 completed Not Available Not Available Not Available metformin 1,000 mg tablet TAKE 1 AND 1/2 TABLETS BY MOUTH ONCE A DAY active Not Available Not Available No t Available glimepiride 4 mg tablet TAKE 1 TABLET BY MOUTH EVERY DAY active Not Available Not Available No t Available hydrocodone 5 mg-acetamin ophen 500 mg tablet 02/07 completed Not Available Not Available Not Available scopolamine 1 mg over 3 days transdermal patch APPLY ONE PATCH TO THE SKIN 4 HOURS PRIOR TO CRUISE. CHANGE PATCH EVERY 72 HOURS 09/13 completed Not Available Not Available Not Available cefdinir 300 mg capsule Take 1 capsule every 12 hours by oral route for 7 days. active Not Available Not Available No t Available fluticasone propionate 50 mcg/actuati on nasal spray,suspe nsion SPRAY 2 SPRAYS INTO EACH NOSTRIL EVERY DAY 05/15 completed Not Available Not Available Not Available metformin ER 500 mg tablet,exte nded release 24 hr TAKE ONE TABLET BY MOUTH ONE TIME DAILY 09/11 completed Not Available Not Available Not Available lisinopril 2.5 mg tablet TAKE 1 TABLET BY MOUTH EVERY DAY active Not Available Not Available No t Available diazepam 5 mg tablet TAKE 1/2 TAB BY MOUTH 40 MINUTES PRIOR TO FLIGHT 09/13 completed Not Available Not Available Not Available amoxicillin 875 mg-potassiu m clavulanate 125 mg tablet Take 1 tablet twice a day by oral route for 7 days. 03/05 completed Not Available Not Available Not Available vitamin E (dl, acetate) 45 mg (100 unit) capsule TAKE 1 CAPSULE BY MOUTH EVERY DAY 08/29 completed Not Available Not Available Not Available lidocaine (PF) 10 mg/mL (1 %) injection solution In office injection administe red by the provider 03/17 completed NDC: 0409- 4276- 17 Not Available Not Available Not Available ProAir HFA 90 mcg/actuati on aerosol inhaler Inhale 2 puffs every 4 hours by inhalatio n route. active Not Available Not Available No t Available metformin ER 500 mg 24 hr tablet,exte nded release (gastric retention) take one tablet by mouth once daily 04/12 completed Not Available Not Available Not Available Suprep Bowel Prep Kit 17.5 gram-3.13 gram-1.6 gram oral solution 04/12 completed Not Available Not Available Not Available Xarelto 10 mg tablet 08/06 completed Not Available Not Available Not Available vitamin E (dl, acetate) 90 mg (200 unit) capsule TAKE 1 CAPSULE BY MOUTH 3 TIMES A WEEK active Not Available Not Available No t Available vitamin E mixed 200 unit tablet Take 1 tablet every other day by oral route. 2023 active Not Available Not Available Not Avai lable Multi Vitamin Take one tablet daily 07/02 completed Not Available Not Available Not Available dapaglifloz in propanediol 5 mg tablet active Not Available Not Available Not Available OneTouch Ultra Blue Test Strip USE 1 STRIP IN METER ONCE A DAY active Not Available Not Available No t Available OneTouch Delica Plus Lancet 33 gauge USE TO TEST ONCE A DAY 11/24 completed Not Available Not Available Not Available Fluzone High-Dose Quad (PF) 240 mcg/0.7 mL IM syringe PHARMACY ADMINISTE RED 10/06 completed Not Available Not Available Not Available Vitals Date Recorded Body height Body weight Body temperature Heart rate Oxygen saturation Oxygen saturation in Arterial blood by Pulse oximetry Systolic blood pressure Diastolic blood pressure Provider Name and Address Organization Details Last Updated DateTime 3 167.64 cm 425385. 46 g 98.2 [degF] 95 /min 96 % 96 % 122 mm[Hg] 70 mm[Hg] Alejandra Mann, [facility] [employer] 3 11:37:20 Date Recorded Body weight Body temperature Heart rate Oxygen saturation Oxygen saturation in Arterial blood by Pulse oximetry Systolic blood pressure Diastolic blood pressure Provider Name and Address Organization Details Last Updated DateTime 3 918709. 72 g 97.6 [degF] 87 /min 98 % 98 % 110 mm[Hg] 70 mm[Hg] Dionne Rouse MA [place] [employer] [facility] [employer] 3 10:01:12 Date Recorded Body mass index (BMI) Body height Heart rate Respiratory rate Provider Name and Address Organization Details Last Updated DateTime 03/21/2023 39.7 kg/m2 167.64 cm 87 /min 15 /min David Blanco MD [address], [facility] [address], [place], [address], [place] [employer] [facility] [employer] 03/21/2023 10:24:04 Date Recorded Body height Body mass index (BMI) Body weight Body temperature Heart rate Systolic blood pressure Diastolic blood pressure Provider Name and Address Organization Details Last Updated DateTime 3 167.64 cm 40.7 kg/m2 436372. 28 g 98 [degF] 89 /min 114 mm[Hg] 70 mm[Hg] LEILA Connell [employer] [facility] [employer] 3 10:08:54 Date Recorded Body height Body mass index (BMI) Body weight Body temperature Heart rate Systolic blood pressure Diastolic blood pressure Provider Name and Address Organization Details Last Updated DateTime 3 167.64 cm 39.7 kg/m2 788843. 72 g 97.9 [degF] 78 /min 122 mm[Hg] 74 mm[Hg] LEILA Connell [employer] 3 10:00:38 Date Recorded Body height Body mass index (BMI) Body weight Heart rate Oxygen saturation Oxygen saturation in Arterial blood by Pulse oximetry Body temperature Systolic blood pressure Diastolic blood pressure Provider Name and Address Organization Details Last Updated DateTime 4 167.64 cm 39.5 kg/m2 100885. 13 g 88 /min 96 % 96 % 98.2 [degF] 118 mm[Hg] 76 mm[Hg] Dionne Rouse MA [employer] [facility] [employer] 4 11:18:32 Date Recorded Heart rate Respiratory rate Provider N kristin and Address Organization Details Last Updated DateTime 01/15/2024 88 /min 14 /min David Blanco MD [address], [facility] [address], [place], [address], [place] [employer] [facility] [employer] 01/15/2024 11:38:02 Social History Question Answer Notes LastModified by Organization Details LastModified Time Tobacco Smoking Status Former Smoker quit 1985 Not Available [employer] 11/30/2022 05:56:17 Do You Have An Advance Directive? No MIGRATION.0301 [id number] Information not available 11/30/2022 What Is Your Level Of Alcohol Consumption? None MIGRATION.0301 010800 Information not available 11/30/2022 Are You Blind Or Do You Have Difficulty Seeing? No MIGRATION.0301 490520 Information not available 11/30/2022 What Is Your Level Of Caffeine Consumption? Heavy MIGRATION.0301 197512 Information not available 11/30/2022 How Much Tobacco Do You Chew? None MIGRATION.0301 550186 Information not available 11/30/2022 In The 14 Days Before Symptom Onset, Have You Had Close Contact With A Laboratory-confi rmed COVID-19 While That Case Was Ill? No MIGRATION.0301 205084 Information not available 11/30/2022 In The 14 Days Before Symptom Onset, Have You Had Close Contact With A Person Who Is Under Investigation For COVID-19 While That Person Was Ill? No MIGRATION.0301 145010 Information not available 11/30/2022 Are You Deaf Or Do You Have Serious Difficulty Hearing? No MIGRATION.0301 298477 Information not available 11/30/2022 What Type Of Diet Are You Following? REGULAR MIGRATION.0301 155180 Information not available 11/30/2022 Which Illicit Or Recreational Drugs Have You Used? None MIGRATION.0301 901274 Information not available 11/30/2022 Do You Or Have You Ever Used E-cigarettes Or Vape? Never Used Electronic Cigarettes MIGRATION.0301 538828 Information not available 11/30/2022 What Is The Highest Grade Or Level Of School You Have Completed Or The Highest Degree You Have Received? [id number] MIGRATION.0301 486073 Information not available 11/30/2022 Do You Have An Electrostatic Air Filter? No MIGRATION.0301 920835 Information not available 11/30/2022 What Is Your Occupation? Retired MIGRATION.0301 779284 Information not available 11/30/2022 Have There Been Any Changes To Your Family Or Social Situation? No MIGRATION.0301 129065 Information not available 11/30/2022 What Is The Fluoride Status Of Your Home? Unknown MIGRATION.0301 608125 Information not available 11/30/2022 When Did You Quit Smoking? 16+yearssincelast cigarette MIGRATION.0301 784461 Information not available 11/30/2022 Are There Any Guns Present In Your Home? Yes MIGRATION.0301 599407 Information not available 11/30/2022 Do You Have A Humidifier? No MIGRATION.0301 852662 Information not available 11/30/2022 Do You Use Insect Repellent Routinely? No MIGRATION.0301 165766 Information not available 11/30/2022 Where Do You Live? [place] MIGRATION.0301 565097 Information not available 11/30/2022 Do You Have A Medical Power Of Delivery Assistant? No MIGRATION.0301 353905 Information not available 11/30/2022 Do You Have Moisture Problems In Your Home? No MIGRATION.0301 824953 Information not available 11/30/2022 What Was The Date Of Your Most Recent Tobacco Screening? 01/15/2024 [email or web address] Information not available 01/15/2024 Do You Have Any Pets? Yes MIGRATION.0301 256946 Information not available 11/30/2022 What Is Your Relationship Status? MIGRATION.0301 725775 Information not available 11/30/2022 Do You Use Your Seat Belt Or Car Seat Routinely? Yes MIGRATION.0301 427882 Information not available 11/30/2022 Do You Have Smoke And Carbon Monoxide Detectors In Your Home? Yes MIGRATION.0301 814225 Information not available 11/30/2022 Are You Passively Exposed To Smoke? No MIGRATION.0301 810497 Information not available 11/30/2022 Do You Or Have You Ever Used Smokeless Tobacco? Never Used Smokeless Tobacco MIGRATION.0301 615827 Information not available 11/30/2022 Are There Any Smokers In Your House? No MIGRATION.0301 437553 Information not available 11/30/2022 How Much Tobacco Do You Smoke? No Was 2ppw MIGRATION.0301 962954 Information not available 11/30/2022 What Types Of Sporting Activities Do You Participate In? None MIGRATION.0301 761579 Information not available 11/30/2022 Do You Feel Stressed (tense, Restless, Nervous, Or Anxious, Or Unable To Sleep At Night)? GV3291-3 MIGRATION.0301 055115 Information not available 11/30/2022 Do You Use Any Illicit Or Recreational Drugs? No MIGRATION.0301 766009 Information not available 11/30/2022 Do You Use Sunscreen Routinely? No MIGRATION.0301 496419 Information not available 11/30/2022 Has Tobacco Cessation Counseling Been Provided? No MIGRATION.0301 802353 Information not available 11/30/2022 Have You Recently Traveled Abroad? No MIGRATION.0301 700481 Information not available 11/30/2022 Do You Have Any Dietary Restrictions? No MIGRATION.0301 767016 Information not available 11/30/2022 Do You Or Have You Ever Used Any Other Forms Of Tobacco Or Nicotine? No MIGRATION.0301 032427 Information not available 11/30/2022 Sex: Male Functional Status Question Answer Note LastModified by [employer] Details LastModified Time Do you have difficulty walking or climbing stairs? No MIGRATION.[id number] 026 Information not available 11/30/2022 Do you have transportation difficulties? No MIGRATION.3511614 026 Information not available 11/30/2022 Are you able to walk? YESWOREST MIGRATION.8649147 026 Information not available 11/30/2022 Do you have difficulty doing errands alone? No MIGRATION.2242577 026 Information not available 11/30/2022 Are you able to care for yourself? Yes MIGRATION.3133598 026 Information not available 11/30/2022 Do you have difficulty dressing or bathing? No MIGRATION.4737405 026 Information not available 11/30/2022 What is your exercise level? Occasional MIGRATION.3119128 026 Information not available 11/30/2022 Mental Status Question Answer Note LastModified by Jimmy [employer] Details LastModified Time Do you have difficulty concentrating, remembering or making decisions? No MIGRATION.[id number] 6 Information not available 11/30/2022 Family History Relationship Description Onset Age of this Age Resolved Age Notes LastModified by Organization Details LastModified Time Mother Diabetes mellitus MIGRATION.632 [id number] Not available 11/30/2022 05:57:50 Mother Chronic obstructive pulmonary disease MIGRATION.599 [id number] Not available 11/30/2022 05:57:50 Father Heart disease MIGRATION.273 [id number] Not available 11/30/2022 05:57:50 Father Diabetes mellitus MIGRATION.240 [id number] Not available 11/30/2022 05:57:51 Unspecified Relation History of hepatitis C MIGRATION.660 [id number] Not available 11/30/2022 05:57:51 Medical History Condition Response BLINDNESS N NERVE DISEASE N RHEUMATIC FEVER N BLADDER PROBLEMS N KIDNEY STONES N MRSA N OTHER # 1 N POLIO N LUNG DISEASE/DISORDER N RADIATION / CHEMOTHERAPY N COPD N Other # 2 N BLOOD DISEASES N EAR OR HEARING PROBLEMS N MUMPS N BOWEL PROBLEMS N DEPRESSION (INCLUDING POST ) N STROKE/TIA N ULCERS N BENIGN PROSTATIC HYPERPLASIA N MEASLES N MYOCARDIAL INFARCTION N OBESITY Y GERD/NAUSEA Y ANEURYSM N URINARY/BLADDER/KIDNEY PROBLEMS N CORONARY ARTERY DISEASE (CAD) N ADDICTION CONCERNS N Impotence N ENDOMETRIOSIS N USE OF BLOOD THINNERS N SKIN PROBLEMS N GASTROINTESTINAL DISORDER N PERIPHERAL VASCULAR DISEASE N MUSCLE,JOINT OR BONE PROBLEMS Y GASTROINTESTINAL BLEEDING N BLOOD CLOTS N ASTHMA Y CATARACTS N ERECTILE DYSFUNCTION N VARICOSITIES N GI PROBLEMS N Low Testosterone N INFERTILITY N AIDS/HIV N CHEMOTHERAPY / RADIATION N LIVER DISEASE N MALE HYPOGONADISM N HYPERTENSION Y Deficiency N TOURETTE'S N ANXIETY DISORDER N BLOOD TRANSFUSION N ANEMIA/BLOOD DISORDER N CHRONIC EAR INFECTIONS N BRONCHITIS N TUBERCULOSIS N GLAUCOMA N FOOT PROBLEM N DIVERTICULITIS N SLEEP APNEA Y CHICKENPOX N INFECTIOUS DISEASE N PROSTATE N HEART ARRHYTHMIA N INSOMNIA N HIGH CHOLESTEROL / HYPERLIPIDEMIA Y EYE PROBLEMS N HYPERTHYROIDISM N EDEMA N CHRONIC PAIN SYNDROME N HYPOTHYROIDISM N CAROTID BLOCKAGE N CONSTIPATION N BACK / NECK PROBLEMS N ATHEROSCLEROSIS N BREAST PROBLEMS N DIALYSIS N ECZEMA N OSTEOPOROSIS N ARTHRITIS Y APPENDICITIS N DIABETES, TYPE Y BAD TEETH N ENT N HEARTBURN / REFLUX N AUTISM SPECTRUM DISORDER (ASD) N HEPATITIS / LIVER DISEASE N GOUT N SLEEP DISORDER N ALZHEIMER'S DISEASE N Brain Problems N DEMENTIA N HERPES N SEIZURES/EPILEPSY N HEADACHES/MIGRAINES N VASCULAR DISEASE N PACEMAKER N Blood Disorder N DIZZINESS N HEART DISEASE/HEART PROBLEMS N KIDNEY DISEASE N MULTIPLE SCLEROSIS N CANCER: SPECIFY N CARDIAC ARRHYTHMIA N ATRIAL FIBRILLATION N Gall Stones N PULMONARY EMBOLISM N AUTOIMMUNE DISEASE N Immunizations Vaccine Type Date Status Note Provider Nam e and Address Organization Details Recorded Time SARS-COV-2 (COVID-19) vaccine, UNSPECIFIED 3 completed Not Available [facility] 09/18/2023 08:12:27 COVID-19, mRNA, LNP-S, PF, 30 mcg/0.3 mL dose 1 completed Not Available [facility] 09/18/2023 08:12:27 COVID-19, mRNA, LNP-S, PF, 30 mcg/0.3 mL dose 1 completed Not Available [facility] 09/18/2023 08:12:27 Influenza, high-dose, quadrivalent, PF 0 completed Not Available [facility] 09/18/2023 08:12:27 Influenza, split virus, quadrivalent, preservative 8 completed Not Available [facility] 09/18/2023 08:12:27 Influenza, high-dose, quadrivalent, PF 2 completed Not Available [facility] 09/18/2023 08:12:27 COVID-19, mRNA, LNP-S, PF, 30 mcg/0.3 mL dose 2 completed Not Available [facility] 09/18/2023 08:12:27 Influenza, high-dose, trivalent, PF 2 completed Not Available [facility] 09/18/2023 08:12:27 COVID-19, mRNA, LNP-S, PF, 30 mcg/0.3 mL dose 2 completed Not Available [facility] 09/18/2023 08:12:27 pneumococcal polysaccharide PPV23 2 completed Not Available [facility] 09/18/2023 08:12:27 Pneumococcal conjugate PCV 13 1 completed Not Available [facility] 09/18/2023 08:12:27 Influenza, high-dose, quadrivalent, PF 1 completed Not Available [facility] 09/18/2023 08:12:27 Influenza, split virus, quadrivalent, PF 6 completed Not Available [facility] 09/18/2023 08:12:27 Influenza, split virus, quadrivalent, PF 5 completed Not Available [facility] 09/18/2023 08:12:27 zoster live 5 completed Not Available [facility] 09/18/2023 08:12:27 Influenza, high-dose, quadrivalent, PF 3 completed Johnny Talamantes MD [address] [place] [address], [facility] [address], [place], [address], [facility] [employer] 10/03/2023 22:52:23 Past Encounters Encounter ID Performer Location Encounter Start Date Encounter Closed Date Diagnosis/Indication Diagnosis SNOMED-CT Code Diagnosis ICD10 Code Diagnosis Note [id number] [facility] [address] [address] 03/17/2021 00:00:00 03/21/2021 17:41:48 [id number] [facility] [address] [address] 04/06/2021 00:00:00 04/11/2021 21:30:01 [id number] [facility] [address] [address] 04/14/2021 00:00:00 04/14/2021 10:28:05 [id number] [facility] [address] [address] 04/21/2021 00:00:00 09/22/2021 09:24:03 [id number] [facility] [address] [address] 07/06/2021 00:00:00 07/06/2021 21:14:05 [id number] [facility] [address] [address] 11/02/2021 00:00:00 11/02/2021 22:13:22 [id number] [facility] [address] [address] 01/19/2022 00:00:00 02/01/2022 18:24:00 [id number] [facility] [address], [address] [address] 03/08/2022 00:00:00 03/08/2022 18:40:48 [id number] [facility] [address] [address] 08/29/2022 00:00:00 08/29/2022 10:27:36 [id number] [facility] [address] [place] [address] 1 09/06/2022 00:00:00 09/24/2022 09:22:48 [id number] Johnny Talamantes MD [facility] [address] [place] [address] 1 01/02/2023 11:14:43 01/02/2023 12:48:19 Dyslipidemia 334302798 E78.5 Essential hypertension 50707764 I10 Type 2 deondre betes mellitus without complication 650733067 E11.9 [id number] [place] [address] 03/21/2023 09:42:55 03/22/2023 08:34:03 Obstructive sleep apnea syndrome 52392474 G47.33 Vitamin E deficiency 541 58508 E56.0 [id number] Johnny Talamantes MD [facility] Internal Med [facility] [address] [place] [address] 05/15/2023 09:58:01 05/15/2023 10:51:15 Dyslipidemia 397090792 E78.5 Essential hypertension 75978557 I10 Type 2 deondre betes mellitus without complication 060502608 E11.9 Screening for malignant neoplasm of prostate 703561417 Z12.5 Obesity 849587828 E66.9 Gastroesop hageal reflux disease 046676931 K21.9 Obstructiv e sleep apnea syndrome 55422596 G47.33 [id number] Johnny Talamantes MD [facility] [address] [address] 09/13/2023 09:47:41 09/13/2023 10:51:04 Dyslipidemia 442252002 E78.5 Essential hypertension 83620273 I10 Type 2 deondre betes mellitus without complication 119113287 E11.9 Administra tion of influenza vaccine 12478145 Z23 [id number] David Blanco MD [place] [address] 01/15/2024 10:40:48 01/16/2024 08:25:43 Obstructive sleep apnea syndrome 33140373 G47.33 Vitamin E deficiency 541 69846 E56.0 Health Concerns Section Related Observation LastModified by Organization Detai ls LastModified Time None Recorded Concern Status LastModified by Organization Details LastModified Time None Recorded Advance Directives Directive N: Payers Encounter Date Sequence Insurance Name Policy Number Policy Ruiz Covered Member ID Ruiz Member ID Guarantor Name 01/02/2023 1 [employer] (MEDICARE REPLACEMENT PPO) [id number] 1 Oh Clifton [id number] Oh Ledesma Etienne 03/21/2023 1 [employer] (MEDICARE REPLACEMENT PPO) [id number] 1 Oh Clifton [id number] Oh Clifton 05/15/2023 1 [employer] (MEDICARE REPLACEMENT PPO) [id number] Oh Ledesma Etienne [id number] Oh Ledesma Etienne 09/13/2023 1 [employer] (MEDICARE REPLACEMENT PPO) [id number] 1 Oh Clifton [id number] Oh Clifton 01/15/2024 1 [employer] (MEDICARE REPLACEMENT PPO) [id number] 1 Oh Clifton [id number] Oh Clifton Notes Date Note Type Note Provider Name and Address Organization Details Recorded Time 01/02/2023 text/html DyslipidemiaNeed s to watch dietHypertension no headache no dizziness diabetes needs blood work Johnny Talamantes MD [address] [place] [address] [address], [place], [address], [facility] [employer] 01/02/2023 23:10:55 03/21/2023 text/html Primary care/Ref erring provider: Johnny Talamantes MD, The patient had an elevated PLMI of 43 during the [facility] diagnostic sleep study on 09/12/18. He has vitamin E deficiency.At home since 07/04/22, the patient uses a ResMed Air Sense 11 autoset unit with heated humidification. He does not need the ramp to start low and go up slowly on the pressure anymore. There is no xerostomia in a.m. There is no hose/mask condensation with water.Patient wears Respironics medium Dream Wear nasal pillows without chin strap. There is no claustrophobia, no nostril/nose bridge irritation, no facial rash, no facial numbness, no nosebleeding.Patient feels more refreshed upon waking and daytime alertness is improved. Energy levels are sustained until noon.At home, the patient sleeps from 12 am to 6:30 am and wakes up without an alarm.Snoring: heavy, since .Snorting: noChoking: noCoughing: noGasping: noGagging: noSighing: noWitnessed apnea: yesTwitching or jerking of leg(s), arm(s), body, head: yesTeeth grinding: yesTeeth clenching: yesSleeptalking: yesSleepwalking: noSleep crying: noBedwetting: noTongue/lip/gum/cheek biting: noSleeping with open mouth: yesSleep paralysis: noHypnagogic hallucinations: noHypnopompic hallucinations: noVivid dreams: noDifficulty with sleep onset: yesDifficulty with sleep maintenance: yesSleep interruptions: nocturiaPatient wakes up with: fatigue, xerostomia, sore throat, headache, mobility impairment, dexterity impairmentDaytime cataplexy: noMorning hypersomnolence: yesAfternoon hypersomnolence: yesCaffeine sources in diet: coffee 2.5 cups per day, tea 1 cup per month, soda 4.5 cans per day, chocolate 1 candy bar per day Associated medical and psychiatric conditions:Congestive heart failure: noCoronary artery disease: noMyocardial infarction: noHypertension: yesStroke: noBronchial asthma: noChronic obstructive pulmonary disease: noDepression: noBipolar disorder: noAnxiety: noPanic disorder: noPosttraumatic stress disorder: noAttention deficit and hyperactivity disorder: noObsessive Compulsive disorder: noSchizophrenia: noSchizoaffective disorder: noPersonality disorder: noChronic analgesic use: noChronic sedative/hypnotic use: noEPWORTH SLEEPINESS SCALE (ESS)CHANCE OF DOZING SCORE0 = would never doze1 = slight chance of dozing2 = moderate chance of dozing3 = high chance of dozing SITUATION AND CHANCE OF DOZINGSitting and reading - 1Watching television - 2Sitting inactive in a public place (e.g. a theater or meeting) - 0As a passenger in a car for an hour without a break - 0Lying down to rest in the afternoon when circumstances permit - 3Sitting and talking to someone - 0Sitting quietly after lunch without alcohol - 1In a car, while stopped for a few minutes in the traffic - 0TOTAL SCORE 7Subjectively, patient has a slight chance of dozing. David Blanco MD [address], [place], [address], [employer] 03/21/2023 10:25:02 05/15/2023 text/html Type 2 diabetes no polyphagia polydipsia obesity not losing weight hypertension no headache no dizziness dyslipidemia could do better with diet osteoarthritis andrea Talamantes MD [address], [place], [address], [employer] 05/15/2023 13:57:43 09/13/2023 text/html Type 2 diabetes no polyphagia polydipsia obesity not losing weight hypertension no headache no dizziness dyslipidemia could do better with diet osteoarthritis andrea Talamantes MD [address], [place], [address], [employer] 10/03/2023 22:52:26 01/15/2024 text/html Primary care/Ref erring provider: Johnny Talamantes MDThe patient had an elevated PLMI of 43 during the [facility] diagnostic sleep study on 09/12/18. He has vitamin E deficiency.At home since 03/21/23, the patient uses a ResMed Air Sense 11 autoset unit with heated humidification. He does not need the ramp to start low and go up slowly on the pressure anymore. There is no xerostomia in a.m. There is no hose/mask condensation with water.Patient wears Respironics medium Dream Wear nasal pillows without chin strap. There is no claustrophobia, no nostril/nose bridge irritation, no facial rash, no facial numbness, no nosebleeding.Patient feels more refreshed upon waking and daytime alertness is improved. Energy levels are sustained until noon.At home, the patient sleeps from 12 am to 6:30 am and wakes up without an alarm.Snoring: heavy, since .Snorting: noChoking: noCoughing: noGasping: noGagging: noSighing: noWitnessed apnea: yesTwitching or jerking of leg(s), arm(s), body, head: yesTeeth grinding: yesTeeth clenching: yesSleeptalking: yesSleepwalking: noSleep crying: noBedwetting: noTongue/lip/gum/cheek biting: noSleeping with open mouth: yesSleep paralysis: noHypnagogic hallucinations: noHypnopompic hallucinations: noVivid dreams: noDifficulty with sleep onset: yesDifficulty with sleep maintenance: yesSleep interruptions: nocturiaPatient wakes up with: fatigue, xerostomia, sore throat, headache, mobility impairment, dexterity impairmentDaytime cataplexy: noMorning hypersomnolence: yesAfternoon hypersomnolence: yesCaffeine sources in diet: coffee 2.5 cups per day, tea 1 cup per month, soda 4.5 cans per day, chocolate 1 candy bar per dayAssociated medical and psychiatric conditions:Congestive heart failure: noCoronary artery disease: noMyocardial infarction: noHypertension: yesStroke: noBronchial asthma: noChronic obstructive pulmonary disease: noDepression: noBipolar disorder: noAnxiety: noPanic disorder: noPosttraumatic stress disorder: noAttention deficit and hyperactivity disorder: noObsessive Compulsive disorder: noSchizophrenia: noSchizoaffective disorder: noPersonality disorder: noChronic analgesic use: noChronic sedative/hypnotic use: noEPWORTH SLEEPINESS SCALE (ESS)CHANCE OF DOZING SCORE0 = would never doze1 = slight chance of dozing2 = moderate chance of dozing3 = high chance of dozing SITUATION AND CHANCE OF DOZINGSitting and reading - 2Watching television - 2Sitting inactive in a public place (e.g. a theater or meeting) - 1As a passenger in a car for an hour without a break - 2Lying down to rest in the afternoon when circumstances permit - 3Sitting and talking to someone - 0Sitting quietly after lunch without alcohol - 3In a car, while stopped for a few minutes in the traffic - 0TOTAL SCORE 13Subjectively, patient has a moderate chance of dozing. David Blanco MD [address] [facility], [facility] [address], [place], [address], [place] - [facility] 01/15/2024 11:55:43
--- OUTSIDE RECORDS SUMMARY | 2024-12-10 00:46 | XMS_ITS | Continuity of Care Document ---
Author Organization [facility] Address [address] [place] [address] [address] [place] [address] Phone Care Team Providers Care Patrol Captain Name Role Phone Holli Mitchell Unavailable Unavailable Procedures Procedure Date Post-op Follow-up Visit Post-op Follow-up Visit Remove Cataract, Insert Lens Office/outpatient Visit, Est Echo Exam Of Eye Advance Directives Directive Yes / No Effective Date File Name No Information Encounters Encounter Description Practice Location Reason(s) For Visit Diagnoses Date Provider Providers Copied on Encounter Formerly [facility], [address] [place] [address] [address], [place], [place], [id number], [place] tel:[phone] [facility] No Information 0 Paula Layn. [address] [facility] , [address], [place], [place], [facility], [place]. tel:[phone] Referring Provider: Michi Fernandez OD D, [address] [facility] [address], [place], [address]. tel:[phone] Formerly [facility], [address] [place] [address] [address], [place], [place], [id number], [place] tel:[phone] [facility] No Information 0 Paula De La Garza. [address] [facility] , [address], [place], [address], [place]. tel:[phone] Formerly [facility], [address] [place] [address] [address], [place], [place], [id number], [place] tel:[phone] [facility] No Information 0-201 0 Paula De La Garza. [address] [facility] , [address], [place], [place], [facility], . tel:[phone] Referring Provider: Michi Stewart, [address] [facility] [address], [place], [address]. tel:[phone] Office/outpat ient Visit, [facility], [address], [place], [place], [id number], [place] tel:[phone] [facility] [place] No Information 5-201 0 Paula Bahena [address] [facility] , [address], [place], [place], [facility], . tel:[phone] Referring Provider: Michi Stewart, [address] [facility] [address], [place], [address]. tel:[phone] Family History Family Member Type Diagnosis Age At Onset No Information Payers Payer name Insurance type Covered democrat ID Authoriza tion(s) No Information Social History Type Description Quantity Date Captured Comments Sex Male Smoking Status No Information Chief Complaint And Reason For Visit No Information Reason For Referral Reason For Referral No Information History Of Present Illness Encounter Date Complaint History Of Prese nt Illness No Information Functional Status Date Functional Assessmen t No Information Instructions Date Instruction Additional Infor mation No Information Assessments Type Assessment Date No Information Patient Care Teams Name Effective Dates (start - stop) Status Members No Information
--- OUTSIDE RECORDS SUMMARY | 2024-12-10 00:46 | XMS_ITS | Data Portability ---
[facility] Organization [facility] [address] [place] [address] Care Team Providers Care Copper Plater Name Role Phone JOSÉ MIGUEL TALAMANTES Primary Care Provider Assessment Encounter Date Assessment Date Assessment LastModified by Organization Details LastModified Time 12/26/2023 12/26/2023 Diabetes A1c targets discussed [id number] A1c today 8.2 hypertension blood pressure 134/78 continue current therapy dyslipidemia check labs obesity caloric restriction obtain old records follow-up with me in 4. He has been having some problems with his right knee does have a history of a total knee replacement he is going to consider whether or not he wants to see orthopedics yet [email or web address] Not available 12/30/2023 17:27:46 06/04/2024 06/04/2024 CBC CMP lipid hemoglobin A1c diagnosis and assessment and plan discussed caloric restriction discussed targets for his blood pressure LDL and A1c have been discussed he will follow up with me in 4 months. Orthopedic referral made Not available 06/04/2024 21:51:41 10/24/2024 10/24/2024 blood pressure is controlled we will obtain blood work and see where he is biochemically with his disease processes of dyslipidemia and diabetes. He had a Cologuard 2 years ago he is following with Dr. Fink from ortho for some orthopedic complaints he is up-to-date on his diabetic eye exam we will get him up-to-date on diabetic foot exam and healthy lifestyle care instructions that is important that he loses some weight follow up 3 months [email or web address] Not available 11/10/2024 14:32:10 Plan of Treatment Reminders Order Date Submit Date Provider Last Modified By Organization Details Last Modified Time Details Appointments ANY 15 2024 09:30A Tin Talamantes MD Not available Not available Not available Lab HbA1c (hemoglob in A1c), blood 2024 025 MILEY [facility], [address], [address], [address], 10/25/2024 11:08:06 CMP, serum or plasma 2024 025 MILEY [facility], [address], [address], [place], [address], 10/25/2024 11:08:05 CBC w/ auto diff 2024 025 MILEY [facility], [address], [address], [place], [address], 10/25/2024 11:08:07 lipid panel, serum 2024 025 MILEY [facility], [address], [address], [place], [address], 10/25/2024 11:08:03 HbA1c (hemoglob in A1c), blood 2023 024 MILEY [facility], [address], [address], [place], [address], 06/05/2024 06:20:51 CBC w/ auto diff 2023 024 MILEY [facility], [address], [address], [place], [address], 06/05/2024 06:20:52 CMP, serum or plasma 2023 024 MILEY [facility], [address], [address], [place], [address], 06/05/2024 06:20:51 lipid panel, serum 2023 024 MI[facility], [address], [address], [place], [address], 06/05/2024 06:20:50 HbA1c (hemoglob in A1c), blood 2023 024 [email or web address] In-Office Order, Internal Use Only DO Not Attach Compendium DO Not Attach Compendium, Do Not Delete/merge, [id number] 12/26/2023 11:31:00 Referral podiatris t referral 2024 025 khurram Mckeon Jr DPM, [address], [place], [address], 11/25/2024 16:57:44 orthopedi c surgeon referral - Bilateral knee pain 2023 024 sidney Fink MD, [address] [place], [address], 10/24/2024 14:08:24 Procedures None recorded. Surgeries None recorded. Imaging None recorded. Medication Orders None recorded. Patient TargetsNo targets recorded. Patient Instructions Encounter Date Encounter Id Patient Instructions Last Modified By Organization Details Last Modified Time 10/24/2024 [id number] A healthy lifestyle: care instructions [email or web address] Not available 10/24/2024 17:48:02 Reason for Referral Orthopedic Surgeon Referral for Pain of bilateral knee joints Bilateral knee pain Referring Physician: José Miguel Talamantes, Internal Medicine, Encounter Date: 06/04/2024 Director Of Intelligence Referral for Type 2 diabetes mellitus Referring Physician: José Miguel Talamantes, Internal Medicine, Encounter Date: 10/24/2024 Results Created Date Observation Date Name Description Value Unit Range Abnormal Flag Note LastModifiedBy Organization Detail LastModifiedTime 12/26/1912/26/2023 HbA1c (hemo globi n A1c), blood HbA1c 8.2 Not Available In-Office Order Internal Use Only DO Not Attach Compendium DO Not Attach Compendium, Do Not Delete/merge, [id number] 12/26/2023 10:51:07 06/04/20 06/05/2024 LIPID PANEL cholesterol, total 162 mg/dL 100-19 9 Not Available [facility] ([facility]) [address] [place], [address], 06/05/2024 06:20:50 06/04/20 24 06/05/2024 LIPID PANEL triglyceride s 86 mg/dL 0-149 Not Available [facility] ([facility]) [address] [place], [address], 06/05/2024 06:20:50 06/04/20 24 06/05/2024 LIPID PANEL HDL cholesterol 44 mg/dL >39 Not Available [facility] ([facility]) [address] [place], [address], 06/05/2024 06:20:50 06/04/20 24 06/05/2024 LIPID PANEL VLDL cholesterol odette 16 mg/dL 5-40 Not Available [facility] ([facility]) [address] [place], [address], 06/05/2024 06:20:50 06/04/20 24 06/05/2024 LIPID PANEL LDL chol calc ([facility]) 102 mg/dL 0-99 above high normal Not Available [facility] ([facility]) [address] [place], [address], 06/05/2024 06:20:50 06/04/20 24 06/05/2024 COMP. METAB OLIC PANEL (14) glucose 131 mg/dL 70-99 above high normal Not Available [facility] ([facility]) [address] [place], [address], 06/05/2024 06:20:51 06/04/20 24 06/05/2024 COMP. METAB OLIC PANEL (14) BUN 10 mg/dL 8-27 Not Available [facility] ([facility]) [address] [place], [address], 06/05/2024 06:20:51 06/04/20 24 06/05/2024 COMP. METAB OLIC PANEL (14) creatinine 0.66 mg/dL 0.76-1 .27 below low normal Not Available [facility] ([facility]) [address] [facility], [place], [address], 06/05/2024 06:20:51 06/04/20 24 06/05/2024 COMP. METAB OLIC PANEL (14) eGFR 102 mL/mi n/1.7 3 >59 Not Available [facility] ([facility]) [address] [facility], [place], [address], 06/05/2024 06:20:51 06/04/20 24 06/05/2024 COMP. METAB OLIC PANEL (14) BUN/creatini ne ratio 15 10-24 Not Available [facility] ([facility]) [address] [facility], [place], [address], 06/05/2024 06:20:51 06/04/20 24 06/05/2024 COMP. METAB OLIC PANEL (14) sodium 140 mmol/ L 134-14 4 Not Available [facility] ([facility]) [address] [place], [address], 06/05/2024 06:20:51 06/04/20 24 06/05/2024 COMP. METAB OLIC PANEL (14) potassium 4.4 mmol/ L 3.5-5. 2 Not Available [facility] ([facility]) [address] [place], [address], 06/05/2024 06:20:51 06/04/20 24 06/05/2024 COMP. METAB OLIC PANEL (14) chloride 101 mmol/ L 96-106 Not Available [facility] ([facility]) [address] [facility], [place], [address], 06/05/2024 06:20:51 06/04/20 24 06/05/2024 COMP. METAB OLIC PANEL (14) carbon dioxide, total 25 mmol/ L 20-29 Not Available [facility] ([facility]) [address] [place], [address], 06/05/2024 06:20:51 06/04/20 24 06/05/2024 COMP. METAB OLIC PANEL (14) calcium 10.0 mg/dL 8.6-10 .2 Not Available [facility] ([facility]) [address] [facility], [place], [address], 06/05/2024 06:20:51 06/04/20 24 06/05/2024 COMP. METAB OLIC PANEL (14) protein, total 7.0 g/dL 6.0-8. 5 Not Available [facility] ([facility]) [address] [place], [address], 06/05/2024 06:20:51 06/04/20 24 06/05/2024 COMP. METAB OLIC PANEL (14) albumin 4.5 g/dL 3.9-4. 9 Not Available [facility] ([facility]) [address] [facility] [place], [address], 06/05/2024 06:20:51 06/04/20 24 06/05/2024 COMP. METAB OLIC PANEL (14) globulin, total 2.5 g/dL 1.5-4. 5 Not Available [facility] ([facility]) [address] [facility] [place], [address], 06/05/2024 06:20:51 06/04/20 24 06/05/2024 COMP. METAB OLIC PANEL (14) bilirubin, total 0.4 mg/dL 0.0-1. 2 Not Available [facility] ([facility]) [address] [place], [address], 06/05/2024 06:20:51 06/04/20 24 06/05/2024 COMP. METAB OLIC PANEL (14) alkaline phosphatase 56 IU/L 44-121 Not Available [facility]) [address] [facility], [place], [address], 06/05/2024 06:20:51 06/04/20 24 06/05/2024 COMP. METAB OLIC PANEL (14) AST (SGOT) 23 IU/L 0-40 Not Available [facility] ([facility]) [address] [facility], [place], [address], 06/05/2024 06:20:51 06/04/20 24 06/05/2024 COMP. METAB OLIC PANEL (14) ALT (SGPT) 30 IU/L 0-44 Not Available [facility] ([facility]) [address] [facility], [place], [address], 06/05/2024 06:20:51 06/04/20 24 06/05/2024 HEMOG LOBIN A1C hemoglobin A1C 8.5 % 4.8-5. 6 above high normal Predi abete s: 5.7 - 6.4 Diabe sophia: >6.4 Glyce ramandeep contr ol for adult s with diabe sophia: <7.0 Not Available [facility] ([facility]) [address] [facility], [place], [address], 06/05/2024 06:20:51 06/04/20 24 06/04/2024 CBC WITH DIFFE RENTI AL/PL ATELE T WBC 5.1 x10e3 /uL 3.4-10 .8 Not Available [facility] ([facility]) [address] [facility], [place], [address], 06/05/2024 06:20:52 06/04/20 24 06/04/2024 CBC WITH DIFFE RENTI AL/PL ATELE T RBC 5.14 x10e6 /uL 4.14-5 .80 Not Available [facility] ([facility]) [address] [facility], [place], [address], 06/05/2024 06:20:52 06/04/20 24 06/04/2024 CBC WITH DIFFE RENTI AL/PL ATELE T hemoglobin 15.8 g/dL 13.0-1 7.7 Not Available [facility] ([facility]) [address] [facility], [place], [address], 06/05/2024 06:20:52 06/04/20 24 06/04/2024 CBC WITH DIFFE RENTI AL/PL ATELE T hematocrit 46.9 % 37.5-5 1.0 Not Available [facility] ([facility]) [address] [facility], [place], [address], 06/05/2024 06:20:52 06/04/2006/04/2024 CBC WITH DIFFE RENTI AL/PL ATELE T MCV 91 fL 79-97 Not Available [facility] ([facility]) [address] [facility], [place], [address], 06/05/2024 06:20:52 06/04/20 24 06/04/2024 CBC WITH DIFFE RENTI AL/PL ATELE T MCH 30.7 pg 26.6-3 3.0 Not Available [facility] ([facility]) [address] [facility], [place], [address], 06/05/2024 06:20:52 06/04/20 24 06/04/2024 CBC WITH DIFFE RENTI AL/PL ATELE T MCHC 33.7 g/dL 31.5-3 5.7 Not Available [facility] ([facility]) [address] [facility], [place], [address], 06/05/2024 06:20:52 06/04/2006/04/2024 CBC WITH DIFFE RENTI AL/PL ATELE T RDW 12.9 % 11.6-1 5.4 Not Available [facility] ([facility]) [address] [place], [address], 06/05/2024 06:20:52 06/04/20 24 06/04/2024 CBC WITH DIFFE RENTI AL/PL ATELE T platelets 220 x10e3 /uL 150-45 0 Not Available [facility] ([facility]) [address] [facility], [place], [address], 06/05/2024 06:20:52 06/04/20 24 06/04/2024 CBC WITH DIFFE RENTI AL/PL ATELE T neutrophils 42 % notest ab. Not Available [facility] ([facility]) [address] [facility], [place], [address], 06/05/2024 06:20:52 06/04/20 24 06/04/2024 CBC WITH DIFFE RENTI AL/PL ATELE T lymphs 39 % notest ab. Not Available [facility] ([facility]) [address] [facility], [place], [address], 06/05/2024 06:20:52 06/04/20 24 06/04/2024 CBC WITH DIFFE RENTI AL/PL ATELE T monocytes 13 % notest ab. Not Available [facility] ([facility]) [address] [facility], [place], [address], 06/05/2024 06:20:52 06/04/20 24 06/04/2024 CBC WITH DIFFE RENTI AL/PL ATELE T eos 5 % notest ab. Not Available [facility] ([facility]) [address] [facility], [place], [address], 06/05/2024 06:20:52 06/04/20 24 06/04/2024 CBC WITH DIFFE RENTI AL/PL ATELE T basos 1 % notest ab. Not Available [facility] ([facility]) [address] [facility], [place], [address], 06/05/2024 06:20:52 06/04/20 24 06/04/2024 CBC WITH DIFFE RENTI AL/PL ATELE T neutrophils (absolute) 2.2 x10e3 /uL 1.4-7. 0 Not Available [facility] ([facility]) [address] [facility], [place], [address], 06/05/2024 06:20:52 06/04/20 24 06/04/2024 CBC WITH DIFFE RENTI AL/PL ATELE T lymphs (absolute) 2.0 x10e3 /uL 0.7-3. 1 Not Available [facility] ([facility]) [address] [facility], [place], [address], 06/05/2024 06:20:52 06/04/20 24 06/04/2024 CBC WITH DIFFE RENTI AL/PL ATELE T monocytes(ab solute) 0.7 x10e3 /uL 0.1-0. 9 Not Available [facility] ([facility]) [address] [facility], [place], [address], 06/05/2024 06:20:52 06/04/20 24 06/04/2024 CBC WITH DIFFE RENTI AL/PL ATELE T eos (absolute) 0.3 x10e3 /uL 0.0-0. 4 Not Available [facility] ([facility]) [address] [facility], [place], [address], 06/05/2024 06:20:52 06/04/20 24 06/04/2024 CBC WITH DIFFE RENTI AL/PL ATELE T baso (absolute) 0.0 x10e3 /uL 0.0-0. 2 Not Available [facility] ([facility]) [address] [facility], [place], [address], 06/05/2024 06:20:52 06/04/20 24 06/04/2024 CBC WITH DIFFE RENTI AL/PL ATELE T immature granulocytes 0 % notest ab. Not Available [facility] ([facility]) [address] [facility], [place], [address], 06/05/2024 06:20:52 06/04/20 24 06/04/2024 CBC WITH DIFFE RENTI AL/PL ATELE T immature grans (abs) 0.0 x10e3 /uL 0.0-0. 1 Not Available [facility] ([facility]) [address] [place], [address], 06/05/2024 06:20:52 10/24/19 25 10/25/2024 LIPID PANEL cholesterol, total 166 mg/dL 100-19 9 Not Available [facility] ([facility]) [address] [place], [address], 10/25/2024 11:08:03 10/24/19 25 10/25/2024 LIPID PANEL triglyceride s 102 mg/dL 0-149 Not Available [facility] ([facility]) [address] [place], [address], 10/25/2024 11:08:03 10/24/19 25 10/25/2024 LIPID PANEL HDL cholesterol 42 mg/dL >39 Not Available [facility] ([facility]) [address] [place], [address], 10/25/2024 11:08:03 10/24/19 25 10/25/2024 LIPID PANEL VLDL cholesterol odette 19 mg/dL 5-40 Not Available [facility] ([facility]) [address] [place], [address], 10/25/2024 11:08:03 10/24/19 25 10/25/2024 LIPID PANEL LDL chol calc ([facility]) 105 mg/dL 0-99 above high normal Not Available [facility] ([facility]) [address] [place], [address], 10/25/2024 11:08:03 10/24/19 25 10/25/2024 COMP. METAB OLIC PANEL (14) glucose 101 mg/dL 70-99 above high normal Not Available [facility] ([facility]) [address] [place], [address], 10/25/2024 11:08:04 10/24/19 25 10/25/2024 COMP. METAB OLIC PANEL (14) BUN 10 mg/dL 8-27 Not Available [facility] ([facility]) [address] [facility] [place], [address], 10/25/2024 11:08:04 10/24/19 25 10/25/2024 COMP. METAB OLIC PANEL (14) creatinine 0.59 mg/dL 0.76-1 .27 below low normal Not Available [facility] ([facility]) [address] [facility] [place], [address], 10/25/2024 11:08:04 10/24/19 25 10/25/2024 COMP. METAB OLIC PANEL (14) eGFR 105 mL/mi n/1.7 3 >59 Not Available [facility] ([facility]) [address] [place], [address], 10/25/2024 11:08:04 10/24/19 25 10/25/2024 COMP. METAB OLIC PANEL (14) BUN/creatini ne ratio 17 10-24 Not Available [facility] ([facility]) [address] [place], [address], 10/25/2024 11:08:04 10/24/19 25 10/25/2024 COMP. METAB OLIC PANEL (14) sodium 141 mmol/ L 134-14 4 Not Available [facility] ([facility]) [address] [place], [address], 10/25/2024 11:08:04 10/24/19 25 10/25/2024 COMP. METAB OLIC PANEL (14) potassium 4.4 mmol/ L 3.5-5. 2 Not Available [facility] ([facility]) [address] [place], [address], 10/25/2024 11:08:04 10/24/19 25 10/25/2024 COMP. METAB OLIC PANEL (14) chloride 102 mmol/ L 96-106 Not Available [facility] ([facility]) [address] [place], [address], 10/25/2024 11:08:04 10/24/19 25 10/25/2024 COMP. METAB OLIC PANEL (14) carbon dioxide, total 23 mmol/ L 20-29 Not Available [facility] ([facility]) [address] [place], [address], 10/25/2024 11:08:04 10/24/19 25 10/25/2024 COMP. METAB OLIC PANEL (14) calcium 9.9 mg/dL 8.6-10 .2 Not Available [facility] ([facility]) [address] [place], [address], 10/25/2024 11:08:04 10/24/19 25 10/25/2024 COMP. METAB OLIC PANEL (14) protein, total 6.9 g/dL 6.0-8. 5 Not Available [facility] ([facility]) [address] [place], [address], 10/25/2024 11:08:04 10/24/19 25 10/25/2024 COMP. METAB OLIC PANEL (14) albumin 4.6 g/dL 3.9-4. 9 Not Available [facility] ([facility] [address] [place], [address], 10/25/2024 11:08:04 10/24/19 25 10/25/2024 COMP. METAB OLIC PANEL (14) globulin, total 2.3 g/dL 1.5-4. 5 Not Available [facility] ([facility]) [address] [place], [address], 10/25/2024 11:08:04 10/24/19 25 10/25/2024 COMP. METAB OLIC PANEL (14) bilirubin, total 0.4 mg/dL 0.0-1. 2 Not Available [facility] ([facility]) [address] [place], [address], 10/25/2024 11:08:04 10/24/19 25 10/25/2024 COMP. METAB OLIC PANEL (14) alkaline phosphatase 53 IU/L 44-121 Not Available [facility] ([facility]) [address] [place], [address], 10/25/2024 11:08:04 10/24/19 25 10/25/2024 COMP. METAB OLIC PANEL (14) AST (SGOT) 29 IU/L 0-40 Not Available [facility] ([facility]) [address] [facility], [place], [address], 10/25/2024 11:08:04 10/24/19 25 10/25/2024 COMP. METAB OLIC PANEL (14) ALT (SGPT) 40 IU/L 0-44 Not Available [facility] ([facility]) [address] [facility], [place], [address], 10/25/2024 11:08:04 10/24/19 25 10/25/2024 HEMOG LOBIN A1C hemoglobin A1C 8.4 % 4.8-5. 6 above high normal Predi abete s: 5.7 - 6.4 Diabe sophia: >6.4 Glyce ramandeep contr ol for adult s with diabe sophia: <7.0 Not Available [facility] ([facility]) [address] [place], [address], 10/25/2024 11:08:06 10/24/19 25 10/25/2024 CBC WITH DIFFE RENTI AL/PL ATELE T WBC 5.5 x10e3 /uL 3.4-10 .8 Not Available [facility] ([facility]) [address] [place], [address], 10/25/2024 11:08:07 10/24/19 25 10/25/2024 CBC WITH DIFFE RENTI AL/PL ATELE T RBC 4.92 x10e6 /uL 4.14-5 .80 Not Available [facility] ([facility]) [address] [place], [address], 10/25/2024 11:08:07 10/24/19 25 10/25/2024 CBC WITH DIFFE RENTI AL/PL ATELE T hemoglobin 15.1 g/dL 13.0-1 7.7 Not Available [facility] ([facility]) [address] [place], [address], 10/25/2024 11:08:07 10/24/1910/25/2024 CBC WITH DIFFE RENTI AL/PL ATELE T hematocrit 44.1 % 37.5-5 1.0 Not Available [facility] ([facility]) [address] [place], [address], 10/25/2024 11:08:07 10/24/1910/25/2024 CBC WITH DIFFE RENTI AL/PL ATELE T MCV 90 fL 79-97 Not Available [facility] ([facility]) [address] [place], [address], 10/25/2024 11:08:07 10/24/1910/25/2024 CBC WITH DIFFE RENTI AL/PL ATELE T MCH 30.7 pg 26.6-3 3.0 Not Available [facility] ([facility]) [address] [place], [address], 10/25/2024 11:08:07 10/24/1910/25/2024 CBC WITH DIFFE RENTI AL/PL ATELE T MCHC 34.2 g/dL 31.5-3 5.7 Not Available [facility] ([facility]) [address] [place], [address], 10/25/2024 11:08:07 10/24/19 25 10/25/2024 CBC WITH DIFFE RENTI AL/PL ATELE T RDW 12.5 % 11.6-1 5.4 Not Available [facility] ([facility]) [address] [facility], [place], [address], 10/25/2024 11:08:07 10/24/19 25 10/25/2024 CBC WITH DIFFE RENTI AL/PL ATELE T platelets 233 x10e3 /uL 150-45 0 Not Available [facility] ([facility]) [address] [facility], [place], [address], 10/25/2024 11:08:07 10/24/19 25 10/25/2024 CBC WITH DIFFE RENTI AL/PL ATELE T neutrophils 51 % notest ab. Not Available [facility] ([facility]) [address] [facility], [place], [address], 10/25/2024 11:08:07 10/24/19 25 10/25/2024 CBC WITH DIFFE RENTI AL/PL ATELE T lymphs 34 % notest ab. Not Available [facility] ([facility]) [address] [facility], [place], [address], 10/25/2024 11:08:07 10/24/19 25 10/25/2024 CBC WITH DIFFE RENTI AL/PL ATELE T monocytes 11 % notest ab. Not Available [facility] ([facility]) [address] [facility], [place], [address], 10/25/2024 11:08:07 10/24/19 25 10/25/2024 CBC WITH DIFFE RENTI AL/PL ATELE T eos 3 % notest ab. Not Available [facility] ([facility]) [address] [facility], [place], [address], 10/25/2024 11:08:07 10/24/19 25 10/25/2024 CBC WITH DIFFE RENTI AL/PL ATELE T basos 1 % notest ab. Not Available [facility] ([facility]) [address] [facility], [place], [address], 10/25/2024 11:08:07 10/24/19 25 10/25/2024 CBC WITH DIFFE RENTI AL/PL ATELE T neutrophils (absolute) 2.8 x10e3 /uL 1.4-7. 0 Not Available [facility] ([facility]) [address] [facility], [place], [address], 10/25/2024 11:08:07 10/24/19 25 10/25/2024 CBC WITH DIFFE RENTI AL/PL ATELE T lymphs (absolute) 1.9 x10e3 /uL 0.7-3. 1 Not Available [facility] ([facility]) [address] [facility], [place], [address], 10/25/2024 11:08:07 10/24/19 25 10/25/2024 CBC WITH DIFFE RENTI AL/PL ATELE T monocytes(ab solute) 0.6 x10e3 /uL 0.1-0. 9 Not Available [facility] ([facility]) [address] [facility], [place], [address], 10/25/2024 11:08:07 10/24/19 25 10/25/2024 CBC WITH DIFFE RENTI AL/PL ATELE T eos (absolute) 0.2 x10e3 /uL 0.0-0. 4 Not Available [facility] ([facility]) [address] [place], [address], 10/25/2024 11:08:07 10/24/19 25 10/25/2024 CBC WITH DIFFE RENTI AL/PL ATELE T baso (absolute) 0.0 x10e3 /uL 0.0-0. 2 Not Available [facility] ([facility]) [address] [place], [address], 10/25/2024 11:08:07 10/24/19 25 10/25/2024 CBC WITH DIFFE RENTI AL/PL ATELE T immature granulocytes 0 % notest ab. Not Available [facility] ([facility]) [address] [facility], [place], [address], 10/25/2024 11:08:07 10/24/19 25 10/25/2024 CBC WITH DIFFE RENTI AL/PL ATELE T immature grans (abs) 0.0 x10e3 /uL 0.0-0. 1 Not Available [facility] ([facility]) [address] [facility], [place], [address], 10/25/2024 11:08:07 10/28/19 25 06/11/2024 XR, knee, 1 or 2 view No observ ation record ed. [email or web address] [facility] [address], [place], [address], 10/29/2024 14:07:27 Result Notes None recorded. Problems Name Problem SNOMED Code Status Onset Date Resolution Date Notes Provider Name and Address Organization Details Recorded Time Type 2 diabetes mellitus 76329621 Active 2023 José Miguel Talamantes MD Attn: Iva martin,[address] [place], [address], [facility] 4 17:25:58 Essential hypertensio n 31257858 Active 2023 José Miguel Talamantes MD Attn: Iva martin,[address] [place], [address], [place] 4 17:25:59 Hyperlipide reba 60399084 Active 2023 José Miguel Talamantes MD Attn: Iva martin,[address] [place], [address], [place] [facility] 4 17:26:00 Obesity 669162256 Active 2023 José Miguel Talamantes MD Attn: Iva martin,[address] [place], [address], [place] [facility] 4 17:26:09 History of total knee arthroplast y 7111324821627 Active 2023 José Miguel Talamantes MD Attn: Iva martin,[address] [facility], [place], [address], [facility] 17:28:04 Problem Notes None recorded. Procedures Surgical History Date Name Laterality Status Provider Name and Address Organization Details Recorded Time Tonsillectomy completed Jacqui Bhakta [facility] [place] 12/26/2023 10:50:40 Knee arthroscopy/surger y completed Jacqui Bhakta [facility] 12/26/2023 10:50:57 vasectomy completed Jacqui Bhakta [facility] 12/26/2023 10:51:02 Imaging Results Imaging Date Name Status LastModified by Organiz ation Details LastModified Time 06/11/2024 XR, knee, 1 or 2 view completed [facility] [address], [place], [address], 10/29/2024 14:07:27 Procedure Notes None recorded. Medical Equipment None Reported. Allergies No known drug allergies Medications Name Sig Start Date Stop Date Status Note LastModified by Organization Details LastModified Time prednison e 10 mg tablet TAKE 1 TABLET BY MOUTH TWICE A DAY active Not Available Not Available No t Available atorvasta tin 20 mg tablet TAKE 1 TABLET DAILY active Not Available Not Available No t Available clindamyc in HCl 300 mg capsule TAKE 1 CAPSULE 3 TIMES A DAY BY ORAL ROUTE DIRECTED FOR 7 DAYS, FOR DENTAL ABCESS. 06/04 completed Not Available Not Available Not Available atorvasta tin 10 mg tablet TAKE 1 TABLET DAILY 10/30 completed changed to 20mg per Dr Talamantes see lab results. Not Available Not Available Not Available azithromy oh 250 mg tablet TAKE 2 TABLETS BY MOUTH TODAY, THEN TAKE 1 TABLET DAILY FOR 4 DAYS 12/25 completed Not Available Not Available Not Available OneTouch Ultra Test strips USE AND DISCARD 1 TEST STRIP DAILY active Not Available Not Available No t Available metformin 1,000 mg tablet TAKE 1 AND 1/2 TABLETS ONCEDAIL Y active Not Available Not Available No t Available glimepiri de 4 mg tablet TAKE 1 TABLET DAILY active Not Available Not Available No t Available scopolami ne 1 mg over 3 days transderm al patch APPLY ONE PATCH TO THE SKIN 4 HOURS PRIOR TO CRUISE. CHANGE PATCH EVERY 72 HOURS 06/04 completed Not Available Not Available Not Available lisinopri l 2.5 mg tablet TAKE 1 TABLET DAILY active Not Available Not Available No t Available diazepam 5 mg tablet TAKE 1/2 TAB BY MOUTH 40 MINUTES PRIOR TO FLIGHT 06/04 completed Not Available Not Available Not Available vitamin E (dl, acetate) 90 mg (200 unit) capsule TAKE 1 CAPSULE BY MOUTH 3 TIMES A WEEK active Not Available Not Available No t Available Farxiga 5 mg tablet TAKE 1 TABLET DAILY active Not Available Not Available No t Available albuterol sulfate 90 mcg/actua tion breath activated powder inhaler Inhale 2 puffs every 4 hours by inhalati on route. active Not Available Not Available No t Available OneTouch Delica Plus Lancet 33 gauge USE DIRECTED TO CHECK SUGARS DAILY active Not Available Not Available No t Available Vitals Date Recorded Body height Body mass index (BMI) Body weight Heart rate Oxygen saturation Oxygen saturation in Arterial blood by Pulse oximetry Systolic blood pressure Diastolic blood pressure Provider Name and Address Organization Details Last Updated DateTime 4 171.45 cm 38 kg/m2 992247. 44 g 70 /min 97 % 97 % 134 mm[Hg] 78 mm[Hg] LEILA Strong [facility] 4 10:54:35 Date Recorded Body height Body mass index (BMI) Body weight Heart rate Oxygen saturation Oxygen saturation in Arterial blood by Pulse oximetry Systolic blood pressure Diastolic blood pressure Provider Name and Address Organization Details Last Updated DateTime 4 171.45 cm 37.5 kg/m2 110490. 02 g 76 /min 95 % 95 % 128 mm[Hg] 60 mm[Hg] Margy Sanches [place] - [facility] 4 10:40:05 Date Recorded Body height Body mass index (BMI) Body weight Heart rate Oxygen saturation Oxygen saturation in Arterial blood by Pulse oximetry Systolic blood pressure Diastolic blood pressure Provider Name and Address Organization Details Last Updated DateTime 5 171.45 cm 37.6 kg/m2 597741. 18 g 86 /min 96 % 96 % 110 mm[Hg] 62 mm[Hg] Yamilet Cohen [place] - [facility] 14:04:16 Social History Question Answer Notes LastModified by Organizat ion Details LastModified Time Tobacco Smoking Status Former Smoker LEILA Strong, [place] - [facility] 12/26/2023 10:50:31 Do You Have An Advance Directive? No Information not available 10/24/2024 Are You Blind Or Do You Have Difficulty Seeing? No Information not available 10/24/2024 In The 14 Days Before Symptom Onset, Have You Had Close Contact With A Laboratory-confir med COVID-19 While That Case Was Ill? No Information not available 10/24/2024 In The 14 Days Before Symptom Onset, Have You Had Close Contact With A Person Who Is Under Investigation For COVID-19 While That Person Was Ill? No Information not available 10/24/2024 Have You Been To An Area Known To Be High Risk For COVID-19? No Information not available 10/24/2024 Are You Deaf Or Do You Have Serious Difficulty Hearing? No Information not available 10/24/2024 What Type Of Diet Are You Following? REGULAR Information not available 10/24/2024 Are There Any Guns Present In Your Home? No Information not available 10/24/2024 What Was The Date Of Your Most Recent Tobacco Screening? 10/24/2024 Information not available 10/24/2024 What Is Your Current Pack Years? 30ormorepac kyears Information not available 12/26/2023 Do You Use Your Seat Belt Or Car Seat Routinely? Yes Information not available 10/24/2024 Do You Have Smoke And Carbon Monoxide Detectors In Your Home? Yes Information not available 10/24/2024 At What Age Did You Start Smoking Tobacco? 18 Information not available 12/26/2023 How Much Tobacco Do You Smoke? 2 PPD Quit In 1984 Information not available 12/26/2023 Do You Use Any Illicit Or Recreational Drugs? No Information not available 10/24/2024 Do You Use Sunscreen Routinely? No Information not available 10/24/2024 Has Tobacco Cessation Counseling Been Provided? Yes Information not available 10/24/2024 On What Date Was Tobacco Cessation Counseling Provided? 10/24/2024 Information not available 10/24/2024 How Many Years Have You Smoked Tobacco? 15 Information not available 12/26/2023 Sex: Male Functional Status Question Answer Note LastModified by Organization D etails LastModified Time Are you able to care for yourself? Yes Information n ot available 10/24/2024 Mental Status None recorded. Family History Relationship Description Onset Age of this Age Resolved Age Notes LastModified by Organization Details LastModified Time Father Diabetes mellitus [email or web address] Not available 2024 12:27:03 Father Heart disease [email or web address] Not available 2024 12:27:34 Mother Diabetes mellitus [email or web address] Not available 2024 12:27:03 Mother Chronic obstructive pulmonary disease [email or web address] Not available 2024 12:27:25 Medical History Condition Response Coronary Artery Disease N Other N Atrial Fibrillation N High Blood Pressure Y Kidney or Bladder Problems N Thyroid Problems N GI Problems N Depression N COPD N Blood Clots N Have you had a mammogram in the last yea r? N Skin Problems N Anemia N Heart Attack ([place]) N Anxiety Disorder N Diabetes Y Muscle, Joint, or Bone Problems N Seizures/Epilepsy N Have you had a colonoscopy in the last 1 0 years? N Acid Reflux (GERD) N Cancer N Stroke N Asthma N Allergies N Have you had a PSA blood test in the las t year? N High Cholesterol Y Hepatitis N Liver Disease N Headaches N Heart Failure N Osteoporosis N Immunizations Vaccine Type Date Status Note Provider Nam e and Address Organization Details Recorded Time Influenza, split virus, quadrivalent, preservative 8 completed Anne [place] null, [place] [facility] 10/23/2024 12:22:22 Influenza, high-dose, quadrivalent, PF 2 completed [place] [facility] 10/23/2024 12:22:22 Influenza, high-dose, quadrivalent, PF 1 completed [place] [facility] 10/23/2024 12:22:22 Influenza, high-dose, quadrivalent, PF 2 completed Anne [place] [facility] 10/23/2024 12:22:22 Influenza, high-dose, quadrivalent, PF 0 completed [place] [facility] 10/23/2024 12:22:22 Influenza, high-dose, quadrivalent, PF 3 completed [place] [facility] 10/23/2024 12:22:22 COVID-19, mRNA, LNP-S, PF, 30 mcg/0.3 mL dose 2 completed [place] [facility] 10/23/2024 12:22:22 COVID-19, mRNA, LNP-S, PF, 30 mcg/0.3 mL dose 1 completed [place] [facility] 10/23/2024 12:22:22 COVID-19, mRNA, LNP-S, PF, 30 mcg/0.3 mL dose 1 completed [place] [facility] 10/23/2024 12:22:22 COVID-19, mRNA, LNP-S, bivalent, PF, 30 mcg/0.3 mL dose 2 completed [place] [facility] 10/23/2024 12:22:22 COVID-19, mRNA, LNP-S, PF, christiane-sucrose, 30 mcg/0.3 mL 3 completed [place] [facility] 10/23/2024 12:22:22 pneumococcal polysaccharide PPV23 2 completed [place] [facility] 10/23/2024 12:22:22 Pneumococcal conjugate PCV 13 1 completed [place] [facility] 10/23/2024 12:22:22 zoster live 5 completed [place] [facility] 10/23/2024 12:22:22 Influenza, split virus, quadrivalent, PF 6 completed [place] [facility] 10/23/2024 12:22:22 Influenza, split virus, quadrivalent, PF 5 completed Anne [place], [place] - [facility] 10/23/2024 12:22:22 Influenza, high-dose, trivalent, PF 5 completed José Miguel Talamantes MD Attn: Accounting,[address] [facility], [place], [address], [facility] - [facility] 11/10/2024 14:30:44 Pneumococcal conjugate PCV20, polysaccharide FNC207 conjugate, adjuvant, PF 5 completed José Miguel Talamantes MD Attn: Accounting,[address] [facility], [place], [address], [facility] - [facility] 11/10/2024 14:30:44 Past Encounters Encounter ID Performer Location Encounter Start Date Encounter Closed Date Diagnosis/Indication Diagnosis SNOMED-CT Code Diagnosis ICD10 Code Diagnosis Note [id number] José Miguel Talamantes MD [facility] (Adult Med) [address] [place] [id number] 0 12/26/2023 10:36:24 12/26/2023 11:24:19 Type 2 diabetes mellitus 08290555 E11.9 Essential hypertension 01021765 I10 Hyperlipidemia 82992709 E78.5 Obesity 577212254 E66.9 History of total knee arthroplasty 3174368120 105 Z96.179 [id number] José Miguel Talamantes MD [facility] (Adult Med) [address] [place] [id number] 0 06/04/2024 10:01:08 06/04/2024 11:17:40 Essential hypertension 86271949 I10 Hyperlipidemia 75765321 E78.5 Type 2 deondre betes mellitus 38748028 E11.9 Pain of bi lateral knee joints 0143512806 16910 M25.353 [id number] José Miguel Talamantes MD [facility] [address] [place] [address] 10/24/2024 13:43:04 10/24/2024 14:52:39 Body mass index 30+ - obesity 687037761 Z68.37 Obesity 821443161 E66.9 Administra tion of influenza vaccine 74715869 Z23 Administra tion of pneumococcal vaccine 79705279 Z23 Essential hypertension 98408087 I10 Hyperlipidemia 70147914 E78.5 Type 2 deondre betes mellitus 35235289 E11.9 Health Concerns Section Related Observation LastModified by Organization Detai ls LastModified Time None Recorded Concern Status LastModified by Organization Details LastModified Time None Recorded Advance Directives Directive N: Payers Encounter Date Sequence Insurance Name Policy Number Policy Ruiz Covered Member ID Ruiz Member ID Guarantor Name 12/26/2023 1 [employer] (MEDICARE REPLACEMENT PPO) [id number] Oh Clifton [id number] Oh Clifton 06/04/2024 1 [employer] (MEDICARE REPLACEMENT PPO) [id number] Oh Clifton [id number] Oh Clifton 10/24/2024 1 [employer] (MEDICARE REPLACEMENT PPO) [id number] hO Clifton [id number] Oh Clifton Notes Date Note Type Note Provider Name and Address Organization Details Recorded Time 12/26/2023 text/html Diabetes no polyphasia no polydipsia hypertension no chest pain or headache hyperlipidemia could do better with diet obesity discussed back from a cruise a few pounds on. José Miguel Talamantes MD Attn: Accounting, [address] [place], [address], [facility] 12/30/2023 17:28:33 06/04/2024 text/html hypertension no headache or dizziness. Hyperlipidemia needs blood work has not been good on diet. Diabetes has not been good on diet. We will see orthopedic surgeon knees are getting worse. José Miguel Talamantes MD Attn: Accounting, [address] [place], [address], [facility] 06/04/2024 21:51:58 10/24/2024 text/html follow up of his medical problems his blood pressure has been controlled he has no problems with headache chest pain or shortness of breath. Sugars probably out of control he is not watching what he was supposed to eat not doing anything to lose weight José Miguel Talamantes MD Attn: Accounting, [address] [place], [address], [facility] 11/10/2024 14:32:26
--- OUTSIDE RECORDS SUMMARY | 2024-12-10 00:46 | XMS_ITS | CONTINUITY OF CARE DOCUMENT ---
Author Name juan pablo, juan pablo Address Unknown Organization [facility] Address [address] [place] [address] Phone [phone] Care Team Providers Care Senior Linux Unix Administrator Name Role Phone Orville Boucher MD Unavailable JOSÉ MIGUEL ERIC MD Unavailable JOSÉ MIGUEL ERIC MD Unavailable PROBLEMS Condition Status Date Provider Notes PALPITATIONS active Orville Boucher MD OBESITY active Orville Boucher MD CHEST PAIN ATYPICAL active Orville Boucher MD FAMILY HX HEART DISEASE active Orville acosta MD FATIGUE active Orville Boucher MD HYPERCHOLESTEROLEMIA active Orville padilla MD SLEEP APNEA active Orville Boucher MD HTN essential active Ray Plurad DM - type 2 active Ray Plurad ENCOUNTERS Date Type Provider Location Encounter Diag nosis 5 - 8 In-person encounter Office Visit Orville Boucher MD [facility] 0 - 3 In-person encounter Office Visit Orville Boucher MD [facility] - 1 In-person encounter Office Visit Orville Boucher MD [facility] 2 - 2 In-person encounter Office Visit Orville Boucher MD [facility] HTN essentialDM - type 2 0 - 3 In-person encounter Office Visit Orville Boucher MD [facility] SLEEP APNEA 9 - 3 In-person encounter Office Visit Orville Boucher MD [facility] PALPITATIONSOBESITYCHEST PAIN ATYPICALFAMILY HX HEART DISEASEFATIGUEHYPERCHOLESTEROLEMIA VITAL SIGNS Date Observation Value Provider Body Mass Index (Ratio) 36.07 kg/m2 Ashok Boucher MD blood pressure, cuff size regular Cy bryanna Ceja blood pressure, diastolic 70 mm[Hg] Augustine Ceja blood pressure, systolic 124 mm[Hg] Elizabeth Ceja oxygen saturation, oximetry 96 % Cheryl Ceja respiratory rate E&M 16 /min Cheryl Ceja pulse rate 104 /min Cheryl alba weight E&M 266 [lb_av] Cheryl Simmons l height E&M 72 [in_i] Cheryl Troy l Body Mass Index (Ratio) 35.39 kg/m2 Ray Lynne blood pressure, diastolic 79 mm[Hg] Timoteo Basymone Arce blood pressure, systolic 130 mm[Hg] Oly Arce oxygen saturation, oximetry 98 % Mitch Arce respiratory rate E&M 18 /min Concepcion Arce pulse rate 97 /min Mitch carson weight E&M 261 [lb_av] Mitch Castellanoe alli height E&M 72 [in_i] Mitch Castellanoe nson Body Mass Index (Ratio) 35.12 kg/m2 Ashok Boucher MD weight E&M 259 [lb_av] Cheryl alba blood pressure, cuff size small Cy bryanna Ceja blood pressure, diastolic 70 mm[Hg] Cy bryanna Ceja blood pressure, systolic 120 mm[Hg] Elizabeth Ceja oxygen saturation, oximetry 98 % Cheryl Ceja respiratory rate E&M 16 /min Cheryl Ceja pulse rate 97 /min Cheryl alba height E&M 72 [in_i] Cheryl alba Body Mass Index (Ratio) 34.04 kg/m2 Ray Plurad blood pressure, diastolic 80 mm[Hg] Da christine Marco A blood pressure, systolic 152 mm[Hg] Dac ia Marco A oxygen saturation, oximetry 95 % Laurita Marco A respiratory rate E&M 18 /min Laurita V oss pulse rate 56 /min Laurita Marco A weight E&M 251 [lb_av] Laurita Marco A height E&M 72 [in_i] Laurita Marco A Body Mass Index (Ratio) 37.43 kg/m2 Andersen i Willarduenethiago blood pressure, diastolic 88 mm[Hg] Ke rri Gruenenfelder blood pressure, systolic 145 mm[Hg] Eugene ri Desmondnethiago pulse rate 79 /min Jazmyne Cally lder oxygen saturation, oximetry 98 % Jazmyne Lucy respiratory rate E&M 15 /min Jazmyne G hillaryenethiago weight E&M 275 [lb_av] Jazmyne Cally lder Body Mass Index (Ratio) 37.43 kg/m2 Andersen i Gruenenfelder blood pressure, diastolic 80 mm[Hg] Ke rri Gruenenfelder blood pressure, systolic 142 mm[Hg] Ker ri Gruenenfelder pulse rate 84 /min Jazmyne Gruenenfe lder oxygen saturation, oximetry 97 % Jazmyne Desmondnenfwestley respiratory rate E&M 18 /min Jazmyne G hillaryenenfeldkareem weight E&M 275 [lb_av] Jazmyne Gruenenfe lder height E&M 72 [in_i] Jazmyne Alamo lder ALLERGIES No Known Drug Allergies RESULTS Date Observation Value Provider Reference Range Interpretation Location platelet count 219 10*3/mm3 [facility] 8 hematocrit, blood 40.4 % [facility] 8 thyroid stimulating hormone, serum 1.930 u[IU]/mL [facility] 8 B-type natriuretic peptide 14.3 pg/mL [facility] 8 creatinine, serum 0.63 mg/dL [facility] 8 potassium, serum 3.7 mmol/L [facility] 8 sodium, serum 140 mmol/L [facility] HISTORY OF MEDICATION USE Medication Status Instructions Dates Provider Indications Com ments LISINOPRIL 2.5 MG ORAL TABLET active ONE TAB. DAILY Orville Boucher MD CLARITIN CAPSULE active 1 tab once daily Mitch Arce ALEVE TABLET active 1 tab daily Mitch Arce LISINOPRIL 2.5 MG ORAL TABLET completed Take 1 tablet daily - Mitch Arce ATORVASTATIN CALCIUM 10 MG ORAL TABLET active Take 1 tablet daily Cheryl Ceja METFORMIN HCL 1000 MG ORAL TABLET active 1 tab in AM, 1/2 tab in PM Mitch Arce MULTIVITAMINS ORAL CAPSULE active take one daily Laurita Strickland HYDROCODONE-ACET AMINOPHEN 5-325 MG ORAL TABLET completed take one four time daily - Cheryl Ceja DOCUSATE SODIUM 100 MG ORAL CAPSULE completed take one twice daily - Cheryl Ceja ADULT ASPIRIN EC LOW STRENGTH 81 MG ORAL TABLET DELAYED RELEASE completed take one pill a day - Cheryl Ceja PROAIR HFA AEROSOL SOLUTION active as needed Jazmyne Lucy SOCIAL HISTORY Date Observation Value Provider smoking status Never smoker Orville molina MD social history E&M S moking History: P mariana has never smoked. Orville Boucher MD social history reviewed E&M revi ewed - no changes required Orville Boucher MD passive cigarette sm shonna exposure no Cheryl Marcial social history E&M S moking History: P mariana has never smoked. Orville Boucher MD social history reviewed E&M revi ewed - no changes required Orville Boucher MD alcohol use no Mitch Abdi nson drug use no Mitch Abdi nson passive cigarette sm shonna exposure no Mitch Arce smoking status Never smoker Mitch Holly social history reviewed E&M revi ewed - no changes required Orville Boucher MD social history E&M S moking History: P mariana has never smoked. Orville Boucher MD alcohol use no Cheryl alba drug use no Cheryl Simmons l passive cigarette sm shonna exposure no Cheryl Ceja smoking status Never smoker Cheryl salcedo number of grandchildren Orville Boucher MD Ray Plurad social history reviewed E&M revi ewed - no changes required Orville Boucher MD social history E&M S moking History: Baltazar peña has never smoked. 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 Mood and affect are normal. Orville Boucher MD assessment of judgme nt and insight E&M Alert and oriented to time, place and person. Mood and affect are normal. Orville Boucher MD INSURANCE PROVIDERS Payer name Policy type / Coverage type Vianca red green party ID [employer] [facility] Other [id number] ADVANCE DIRECTIVES Name Date DISCUSSED - NO DECISION MADE TREATMENT PLAN Date Name Performer Cardiology follow up : P t. instructed to avoid caffeine. T he following medications were removed from the medication list: Lisinopril 2.5 Mg Oral Tablet (Lisinopril) ..... Take 1 tablet daily Orville Boucher MD Cardiology follow up :NEgative workup with stress test which was reviewed with him, no plans for cath. Orville Boucher MD Cardiology follow up Orville hayden MD Cardiology follow up : H is updated medication list for this problem includes: Atorvastatin Calcium 10 Mg Oral Tablet (Atorvastatin calcium) ..... Take 1 tablet daily Orville Boucher MD Cardiology follow up : T he patient is using CPAP on a regular basis. The patient has been benefiting from therapy and should continue use. Orville Boucher MD Cardiology follow up : H is updated medication list for this problem includes: Lisinopril 2.5 Mg Oral Tablet (Lisinopril) ..... One tab. daily Metformin Hcl 1000 Mg Oral Tablet (Metformin hcl) ..... 1 tab in am, 1/2 tab in pm Orville Boucher MD Cardiology:The patie nt is using CPAP on a regular basis. The patient has been benefiting from therapy and should continue use. Orville Boucher MD Cardiology: O rders: 9 9215 HIGH Complex (CPT-40641) S tress Regadenoson (CPT-27352) Orville Boucher MD Cardiology:Pt. instr ucted to avoid caffeine. T he following medications were removed from the medication list: Lisinopril 2.5 Mg Oral Tablet (Lisinopril) ..... Take 1 tablet daily Orville Boucher MD Cardiology: BP today: 130/79 P rior BP: 120/70 (11/02/2018) Labs Reviewed: C reat: 0.63 (02/06/2014) The following medications were removed from the medication list: Lisinopril 2.5 Mg Oral Tablet (Lisinopril) ..... Take 1 tablet daily Orville Boucher MD Cardiology follow up : T he following medications were removed from the medication list: Adult Aspirin Ec Low Strength 81 Mg Oral Tablet Delayed Release (Aspirin) ..... Take one pill a day H is updated medication list for this problem includes: Lisinopril 2.5 Mg Oral Tablet (Lisinopril) ..... Take 1 tablet daily Metformin Hcl 1000 Mg Oral Tablet (Metformin hcl) ..... Take 1 tablet daily Orville Boucher MD Cardiology follow up : B P today: 120/70 P rior BP: 152/80 (08/03/2018) Labs Reviewed: C reat: 0.63 (02/06/2014) The following medications were removed from the medication list: Adult Aspirin Ec Low Strength 81 Mg Oral Tablet Delayed Release (Aspirin) ..... Take one pill a day His updated medication list for this problem includes: Lisinopril 2.5 Mg Oral Tablet (Lisinopril) ..... Take 1 tablet daily Orville Boucher MD Cardiology hospital follow up:Also on metformin. H is updated medication list for this problem includes: Adult Aspirin Ec Low Strength 81 Mg Oral Tablet Delayed Release (Aspirin) ..... Take one pill a day Orville Boucher MD Cardiology hospital follow up:Remains on atorvastatin. Per PCP. O rders: S leep Study Titration (CPT-08269) C omplete Echo (CPT-21705) 9 9215 HIGH Complex (CPT-03938) Orville Boucher MD Cardiology hospital follow up:Has BP monitor at home. Check BP periodically, INstructed pt. to record numbers at home. BP machine at home is consistent with readings availabe here. Pressures at home are in the 100s. Currently off of lisinopril due to postop hypotension. Orville Boucher MD Cardiology hospital follow up:Noncompliant with CPAP. Needs re-titration. Orville Boucher MD Date Name Stress Regadenoson HEMOGLOBIN A1c THYROID PANEL WITH T SH, 3RD GENERATION B TYPE NATRIURETIC P EPTIDE (BNP) MAGNESIUM LIPID PANEL COMPREHENSIVE METABO LIC PANEL, W/EGFR Complete Echo Sleep Study Titratio n Mobile Cardiac Tele Complete Echo STR - Nuclear HISTORY OF PROCEDURES Procedure Date Procedure Name Provider Procedure Notes S tatus EKG Orville Boucher MD compl eted Regadenoson, 4 units Orville Boucher MD completed Cardiolite, 2 units Orville Boucher MD completed SPECT Images Orville Boucher MD com pleted Stress EKG Tristan Al MD completed EKG Orville Boucher MD compl eted EKG Orville Boucher MD compl eted EKG Orville Boucher MD compl eted EKG Orville Boucher MD compl eted
[2024-12-10 08:05] VITALS: BP 121/73; PULSE 81; RESP 16; TEMP 36.1; O2SAT 98
[2024-12-10] MEDS: LACTATED RINGERS 1,000 ML 150 ML IV CONT (08:15)
[2024-12-10 08:16] LABS: Glucose Point of Care 144 mg/dl (65-105)
--- NOTE | 2024-12-10 09:09 | P.PNAN_ITS ---
Anes - Initial Pre Proc Eval Procedure: Operation Date: 12/10/24 09:30 Proposed Procedures p Screening Colonoscopy - Rob Romano MD Date/Time: 12/10/24 09:09 Surgeon: Rob Romano MD Pre Op Diagnosis: personal hx colon polyps Patient Data Age: 69 Gender: M Height: 1.68 m Weight: 100.6 kg Last Vital Signs Temp 36.1 C L 12/10/24 08:05 Pulse 81 12/10/24 08:05 Resp 16 12/10/24 08:05 BP 121/73 12/10/24 08:05 Pulse Ox 98 12/10/24 08:05 O2 Del Method Room Air 12/10/24 08:05 Allergies Allergy/AdvReac Type Severity Reaction Status Date / Time No Known Allergies Allergy Verified 12/10/24 08:04 Home Medications ?Medication ?Instructions ?Recorded ?Confirmed ?Type atorvastatin 10 mg tablet 10 mg PO DAILY 06/11/24 12/10/24 History dapagliflozin propanediol 5 mg 5 mg PO DAILY 06/11/24 12/10/24 History tablet (Farxiga) glimepiride 4 mg tablet 4 mg PO QAM 06/11/24 12/10/24 History lisinopril 2.5 mg tablet 2.5 mg PO DAILY 06/11/24 12/10/24 History metformin 1,000 mg tablet 1,000 mg PO DAILY 06/11/24 12/10/24 History Laboratory Tests 12/10/24 08:13 POC Capillary Glucose 144 H mg/dl (65-105) Patient hx anesthesia problems: none Family hx anesthesia problems: none Results Review: All pre-operative results and documents have been reviewed as part of the pre- operative evaluation. [facility] Past Medical History Medical History Diabetes Hypertension Surgical History Surgical History History of right knee joint replacement History of knee surgery Family History Family History Other Diabetes mellitus Heart disease Social History Social History Smoking packs per day: 1 Smoking cigarettes per day: 20.0 Years smoked: 10 Smoking pack-years: 10.00 Smoking status: Former smoker Alcohol intake: never Alcohol use details: Quit 1984 Substance use: former Substance use type: marijuana Other substance usage details: smoked marijuana in the 70s Last use: Quit 1984 Current Housing: Decline to Answer Concerned About Future Housing: Decline to Answer Difficulty Paying Gas/Electric Bills: Decline to Answer Difficulty Paying for Meds: Decline to Answer Currently Unemployed: Decline to Answer Education: Decline to Answer Difficulty w/ Childcare or Family Care: Decline to Answer Living arrangements: with family Spiritual care concerns: No Anes - Eval Final PreProcedure Day of Procedure 12/10/24 09:09 Patient weight: obese Heart: regular rate and rhythm Lungs: clear to auscultation Airway: Mallampati scale class II Neurological: alert and oriented Last oral intake: >/= 8 hours ASA classification: III Emergent: no Anesthetic plan: proceed Anesthesia type and monitoring: general GIVS and standard monitoring Results Review: All pre-operative results and documents have been reviewed as part of the pre- operative evaluation. Informed Consent: The patient's anesthetic plan and its attendant risks and benefits were discussed with the patient/family/POA. Questions were solicited and answers provided to the satisfaction of the patient/family/POA.
--- NOTE | 2024-12-10 09:15 | PM.HPGS ---
History of Present Illness History of Present Illness Consent: Risks, benefits, and alternatives have been discussed and questions answered. Patient agrees to proceed with procedure. Chief complaint: personal hx colon polyps Narrative: Oh Clifton is a 69 year old male here for screening colonoscopy, last one about 10 years ago Review of Systems Review of Systems: All systems reviewed & are unremarkable except as noted in HPI and below PMFSH Past Medical History Medical History (Updated 12/10/24 @ 09:16 by Rob Romano MD) Colon cancer screening Diabetes Hypertension Surgical History Surgical History History of right knee joint replacement History of knee surgery Family History Family History Other Diabetes mellitus Heart disease Social History Social History Smoking packs per day: 1 Smoking cigarettes per day: 20.0 Years smoked: 10 Smoking pack-years: 10.00 Smoking status: Former smoker Alcohol intake: never Alcohol use details: Quit 1984 Substance use: former Substance use type: marijuana Other substance usage details: smoked marijuana in the 70s Last use: Quit 1984 Current Housing: Decline to Answer Concerned About Future Housing: Decline to Answer Difficulty Paying Gas/Electric Bills: Decline to Answer Difficulty Paying for Meds: Decline to Answer Currently Unemployed: Decline to Answer Education: Decline to Answer Difficulty w/ Childcare or Family Care: Decline to Answer Living arrangements: with family Spiritual care concerns: No Meds Home Medications and Allergies Home Medications ?Medication ?Instructions ?Recorded ?Confirmed ?Type atorvastatin 10 mg tablet 10 mg PO DAILY 06/11/24 12/10/24 History dapagliflozin propanediol 5 mg 5 mg PO DAILY 06/11/24 12/10/24 History tablet (Farxiga) glimepiride 4 mg tablet 4 mg PO QAM 06/11/24 12/10/24 History lisinopril 2.5 mg tablet 2.5 mg PO DAILY 06/11/24 12/10/24 History metformin 1,000 mg tablet 1,000 mg PO DAILY 06/11/24 12/10/24 History Allergies Allergy/AdvReac Type Severity Reaction Status Date / Time No Known Allergies Allergy Verified 12/10/24 08:04 Vital Signs Vital Signs - 24 hr 12/10/24 08:05 Temperature 96.9 F L Pulse Rate 81 Respiratory Rate 16 Blood Pressure 121/73 Pulse Oximetry 98 Oxygen Delivery Room Air Exam Const: General: comfortable and no acute distress HENMT: Face/Nose/Sinus: Normal nares present Eyes: General: appearance normal, both eyes and all related structures Neck: Neck: no JVD Resp: Auscultation: clear to auscultation bilaterally Cardio: Rate: regular rate Rhythm: regular rhythm GI: Inspection: non-distended GI Palp: Yes Soft to palpation Skin: General skin exam: normal color Neuro: General: gait normal Speech: normal speech Extrem: General: normal to inspection Psych: Mental Status: mental status grossly normal Assessment and Plan Assessment and plan (1) Colon cancer screening: Code(s): Z12.11 - Encounter for screening for malignant neoplasm of colon Status: Acute Assessment and Plan: colonoscopy
[2024-12-10 09:37] VITALS: BP 99/57; PULSE 87; RESP 20; O2SAT 97
[2024-12-10 09:47] VITALS: BP 113/70; PULSE 84; RESP 18; O2SAT 98
[2024-12-10 09:57] VITALS: BP 115/74; PULSE 76; RESP 18; O2SAT 99
== END 2024-12-10 10:11 | disposition home or self-care (01) ==
PROVIDERS: PCP Internal Medicine; Visit Provider Internal Medicine Gastroenterology
PROC: 0DJD8ZZ Inspection of Lower Intestinal Tract, Via Natural or Artificial Opening Endoscopic (ICD-10-PCS; CPT 45378; principal; 2024-12-10 09:30)
DX: Z12.11 Encounter for screening for malignant neoplasm of colon (principal); D12.2 Benign neoplasm of ascending colon; K57.30 Diverticulosis of large intestine without perforation or abscess without bleeding; K64.8 Other hemorrhoids; E11.9 Type 2 diabetes mellitus without complications; Z87.891 Personal history of nicotine dependence; E66.9 Obesity, unspecified; Z68.35 Body mass index [BMI] 35.0-35.9, adult
CPT/HCPCS: 45385; 82948; 88305; J2704; J7120